=== PATIENT | male | born 1990 | race Caucasian/White ===

== ENCOUNTER 2017-07-17 17:56 | Inpatient (IN) | payer OTHER ==
[2017-07-17] MEDS ORDERED: Ondansetron 4 MG/2 ML SDV IVPUSH ONE (18:27)
[2017-07-17] MEDS ORDERED: Sodium Chloride 0.9% 1,000 ML IV ONE (18:27)
--- NOTE | 2017-07-17 18:38 | EDM.PDOC ---
Addendum entered and electronically signed by Panfilo Rangel MD 07/17/17 22 :13: ECG revealed sinus rhythm at 67/m. There is an RSR prime wave in V1 which is a normal variant. Consider left atrial hypertrophy pattern. QT interval is mildly prolonged borderline ECG. Original Note: <Panfilo Rangel - Last Filed: 07/17/17 22:03> ED HPI GENERAL MEDICAL PROBLEM - General Chief Complaint: Gastrointestinal Problem Stated Complaint: THROWING UP/CRAMPING Time Seen by Provider: 07/17/17 18:17 - Related Data Allergies Allergy/AdvReac Type Severity Reaction Status Date / Time No Known Allergies Allergy Verified 07/17/17 18:07 Home Meds: Home Meds . [No Known Home Meds] 07/17/17 [History] Course - Vital Signs Last Recorded V/S: Last Vital Signs Temp 36.3 C 07/18/17 08:37 Pulse 55 L 07/18/17 09:14 Resp 18 07/18/17 05:44 BP 130/95 H 07/18/17 08:37 Pulse Ox 100 07/18/17 09:14 Orthostatic Blood Pressure [ 128/92 Sitting] Orthostatic Blood Pressure [ 127/97 Standing] Orthostatic Blood Pressure [ 130/88 Supine] - Orders/Labs/Meds Labs: Laboratory Tests 07/17/17 07/17/17 07/17/17 Range/Units 18:40 18:40 18:40 WBC 30.24 H (4.23-9.07) K/mm3 RBC 6.16 H (4.63-6.08) M/mm3 Hgb 19.4 H (13.7-17.5) gm/L Hct 53.1 H (40.1-51.0) % MCV 86.2 (79.0-92.2) fl MCH 31.5 (25.7-32.2) pg MCHC 36.5 H (32.2-35.5) g/dl RDW Std Deviation 40.2 (35.1-43.9) fL Plt Count 311 (163-337) K/mm3 MPV 11.5 (9.4-12.3) fl Neutrophils % (Manual) 86 H (40-60) % Band Neutrophils % 0 (0-10) % Lymphocytes % (Manual) 11 L (20-40) % Atypical Lymphs % 0 % Monocytes % (Manual) 3 (2-10) % Eosinophils % (Manual) 0 L (0.8-7.0) % Basophils % (Manual) 0 L (0.2-1.2) Platelet Estimate Adequate RBC Morph Comment Normal Sodium 120 L (136-145) mEq/L Potassium 5.3 H (3.5-5.1) mEq/L Chloride 73 L (98-107) mEq/L Carbon Dioxide 17 L (21-32) mEq/L Anion Gap 35.3 H (5-15) BUN 70 H (7-18) mg/dL Creatinine 9.3 H (0.7-1.3) mg/dL Est Cr Clr Drug Dosing 9.74 mL/min Estimated GFR (MDRD) 7 (>60) mL/min BUN/Creatinine Ratio 7.5 L (14-18) Glucose 125 H (74-106) mg/dL Lactic Acid 3.1 H (0.4-2.0) mmol/L Calcium 11.2 H (8.5-10.1) mg/dL Magnesium 2.4 (1.8-2.4) mg/dl Total Bilirubin 0.7 (0.2-1.0) mg/dL AST 255 H (15-37) U/L ALT 85 H (16-63) U/L Alkaline Phosphatase 103 (46-116) U/L Total Protein 11.2 H (6.4-8.2) g/dl Albumin 5.7 H (3.4-5.0) g/dl Globulin 5.5 gm/dL Albumin/Globulin Ratio 1.0 (1-2) Lipase 156 (73-393) U/L Urine Color (Yellow) Urine Appearance (Clear) Urine pH (5.0-8.0) Ur Specific [place] (1.005-1.030) Urine Protein (Negative) Urine Glucose (UA) (Negative) Urine Ketones (Negative) Urine Occult Blood (Negative) Urine Nitrite (Negative) Urine Bilirubin (Negative) Urine Urobilinogen (0.2-1.0) Ur Leukocyte Esterase (Negative) Urine RBC (0-5) /hpf Urine WBC (0-5) /hpf Ur Epithelial Cells (0-5) /hpf Amorphous Sediment (NOT SEEN) /hpf Urine Bacteria (FEW) /hpf Coarse Granular Casts (0-5) /hpf Urine Mucus (FEW) /hpf Urine Opiates Screen (NEGATIVE) Ur Buprenorphine Scrn (NEGATIVE) Ur Oxycodone Screen (NEGATIVE) Urine Methadone Screen (NEGATIVE) Ur Propoxyphene Screen (NEGATIVE) Ur Barbiturates Screen (NEGATIVE) Ur Tricyclics Screen (NEGATIVE) Ur Phencyclidine Scrn (NEGATIVE) Ur Amphetamine Screen (NEGATIVE) U Methamphetamines Scrn (NEGATIVE) U Benzodiazepines Scrn (NEGATIVE) U Cocaine Metab Screen (NEGATIVE) U Marijuana (THC) Screen (NEGATIVE) 07/17/17 07/17/17 Range/Units 20:59 20:59 WBC (4.23-9.07) K/mm3 RBC (4.63-6.08) M/mm3 Hgb (13.7-17.5) gm/L Hct (40.1-51.0) % MCV (79.0-92.2) fl MCH (25.7-32.2) pg MCHC (32.2-35.5) g/dl RDW Std Deviation (35.1-43.9) fL Plt Count (163-337) K/mm3 MPV (9.4-12.3) fl Neutrophils % (Manual) (40-60) % Band Neutrophils % (0-10) % Lymphocytes % (Manual) (20-40) % Atypical Lymphs % % Monocytes % (Manual) (2-10) % Eosinophils % (Manual) (0.8-7.0) % Basophils % (Manual) (0.2-1.2) Platelet Estimate RBC Morph Comment Sodium (136-145) mEq/L Potassium (3.5-5.1) mEq/L Chloride (98-107) mEq/L Carbon Dioxide (21-32) mEq/L Anion Gap (5-15) BUN (7-18) mg/dL Creatinine (0.7-1.3) mg/dL Est Cr Clr Drug Dosing mL/min Estimated GFR (MDRD) (>60) mL/min BUN/Creatinine Ratio (14-18) Glucose (74-106) mg/dL Lactic Acid (0.4-2.0) mmol/L Calcium (8.5-10.1) mg/dL Magnesium (1.8-2.4) mg/dl Total Bilirubin (0.2-1.0) mg/dL AST (15-37) U/L ALT (16-63) U/L Alkaline Phosphatase (46-116) U/L Total Protein (6.4-8.2) g/dl Albumin (3.4-5.0) g/dl Globulin gm/dL Albumin/Globulin Ratio (1-2) Lipase (73-393) U/L Urine Color Yellow (Yellow) Urine Appearance Cloudy H (Clear) Urine pH 6.0 (5.0-8.0) Ur Specific [place] > or = 1.030 (1.005-1.030) Urine Protein 3+ H (Negative) Urine Glucose (UA) 1+ H (Negative) Urine Ketones Trace H (Negative) Urine Occult Blood 3+ H (Negative) Urine Nitrite Negative (Negative) Urine Bilirubin 1+ H (Negative) Urine Urobilinogen 0.2 (0.2-1.0) Ur Leukocyte Esterase Negative (Negative) Urine RBC 10-20 H (0-5) /hpf Urine WBC 10-20 H (0-5) /hpf Ur Epithelial Cells 0-5 (0-5) /hpf Amorphous Sediment Moderate H (NOT SEEN) /hpf Urine Bacteria Many H (FEW) /hpf Coarse Granular Casts 0-5 (0-5) /hpf Urine Mucus Few (FEW) /hpf Urine Opiates Screen Negative (NEGATIVE) Ur Buprenorphine Scrn Negative (NEGATIVE) Ur Oxycodone Screen Negative (NEGATIVE) Urine Methadone Screen Negative (NEGATIVE) Ur Propoxyphene Screen Negative (NEGATIVE) Ur Barbiturates Screen Negative (NEGATIVE) Ur Tricyclics Screen Negative (NEGATIVE) Ur Phencyclidine Scrn Negative (NEGATIVE) Ur Amphetamine Screen Negative (NEGATIVE) U Methamphetamines Scrn Negative (NEGATIVE) U Benzodiazepines Scrn Negative (NEGATIVE) U Cocaine Metab Screen Negative (NEGATIVE) U Marijuana (THC) Screen Presumptive positive H (NEGATIVE) Meds: Medications Discontinued Medications Generic Name Dose Route Start Last Admin Trade Name Freq PRN Reason Stop Dose Admin Acetaminophen 650 mg 07/17/17 22:16 Tylenol PO Q4H PRN Pain (Mild 1-3)/fever Hydrocodone Bitart/Acetaminophen 1 tab 07/17/17 22:16 07/18/17 09:26 [place] 325-5 Mg PO 1 tab Q4H PRN Administration Pain (moderate 4-6) Albuterol/Ipratropium 3 ml 07/17/17 22:16 Duoneb 3.0-0.5 Mg/3 Ml NEB Q4H PRN Shortness Of Breath/wheezing Hydralazine HCl 20 mg 07/17/17 22:15 Apresoline IVPUSH Q4H PRN Hypertension Hydromorphone HCl 0.25 mg 07/17/17 22:16 Dilaudid IVPUSH Q2H PRN Pain (severe 7-10) Sodium Chloride 1,000 mls @ 999 mls/hr 07/17/17 18:27 07/17/17 18:41 Normal Saline IV 07/17/17 19:27 999 mls/hr ONETIME ONE Administration Dextrose/Lactated Ringer's 1,000 mls @ 999 mls/hr 07/17/17 19:30 07/17/17 19: 47 Dextrose 5%-Lactated Ringers IV 999 mls/hr ASDIRECTED NICOLETTE Administration Dextrose/Sodium Chloride 1,000 mls @ 900 mls/hr 07/17/17 21:30 07/17/17 21:39 Dextrose 5%-Normal Saline IV 900 mls/hr ASDIRECTED NICOLETTE Administration Lactated Ringer's 1,000 mls @ 499.514 mls/hr 07/17/17 22:19 07/18/17 03:01 Ringers, Lactated IV 07/18/17 02:19 499.514 mls/hr ASDIRECTED NICOLETTE Administration Promethazine HCl 12.5 mg/ 50.5 mls @ 100 mls/hr 07/17/17 22:16 Sodium Chloride IV Q6H PRN Nausea/Vomiting Sodium Chloride 1,000 mls @ 250 mls/hr 07/17/17 22:30 07/18/17 07:07 Normal Saline IV 250 mls/hr ASDIRECTED NICOLETTE Administration Lorazepam 2 mg 07/17/17 22:15 Ativan IVPUSH Q4H PRN Seizures Lorazepam 1 mg 07/17/17 22:16 Ativan IV Q6H PRN Anxiety Magnesium Sulfate 0 dose 07/17/17 22:15 Pharmacy To Dose - Magnesium Replacement .XX ASDIRECTED PRN RX TO WATCH MAG LEVELS Metoprolol Tartrate 5 mg 07/17/17 22:15 Lopressor IVPUSH Q4H PRN Tachycardia Miscellaneous Information 1 ea 07/20/17 22:45 Remove Patch TRDERM 07/20/17 22:46 ONETIME ONE Miscellaneous Information 1 ea 07/18/17 09:00 07/18/17 09:13 Remove Patch TRDERM 1 ea DAILY NICOLETTE Administration Nicotine 21 mg 07/17/17 23:30 07/18/17 09:13 Habitrol TRDERM 21 mg DAILY NICOLETTE Administration Ondansetron HCl 4 mg 07/17/17 18:27 07/17/17 18:42 Zofran IVPUSH 07/17/17 18:28 4 mg ONETIME ONE Administration Ondansetron HCl 4 mg 07/17/17 22:16 Zofran IV Q6H PRN Nausea/Vomiting Pantoprazole Sodium 40 mg 07/18/17 09:00 07/18/17 09:16 Protonix Iv IV 40 mg Q12HR NICOLETTE Administration Potassium Chloride 0 dose 07/17/17 22:15 Pharmacy To Dose - Potassium Replacement .XX ASDIRECTED PRN RX TO WATCH K LEVELS Scopolamine 1.5 mg 07/17/17 22:20 07/17/17 23:05 Transderm-Scop TRDERM 07/17/17 22:21 1.5 mg Q72H ONE Administration Temazepam 15 mg 07/17/17 22:16 07/17/17 23:47 Restoril PO 15 mg BEDTIME PRN Administration Sleep - Re-Assessments/Exams Free Text/Narrative Re-Assessment/Exam: 07/17/17 21:00: Had a chest look at his labs done earlier today and identified significant leukocytosis which appears to be a stress response in the absence of any fever or signs of infection. He has a severe metabolic acidosis with an anion gap of 35.3. He has significant hyponatremia at 120. His urine drug screen came back positive only for marijuana as he had identified its use. This question whether his cyclical vomiting or intractable nausea and vomiting is due to marijuana use. 8 he is significantly ill and will require between 4 and 6 L of IV fluids to repair his metabolic acidosis. I therefore discussed the case with Dr. Raygoza men's [employer] boys' clothing salesperson hospitalist and he is agreed to admitting the patient to the [facility] floor on telemetry. Ordered further labs and a chest x-ray. 07/17/17 22:07 chest x-ray revealed hyperinflated lung armando but they are crystal-clear. Urinalysis showed no signs of infection on the ketosis. She'll be admitted to the floor at this time. Admission orders will be placed. Departure - Departure Time of Disposition: 22:03 Disposition: Admitted As Inpatient 68 Condition: Serious Clinical Impression: Metabolic acidosis with increased anion gap and accumulation of organic acids, Hyponatremia, History of marijuana use Intractable nausea and vomiting Qualifiers: Vomiting type: cyclical vomiting Qualified Code(s): G43.A1 - Cyclical vomiting , intractable Leukocytosis Qualifiers: Leukocytosis type: unspecified Qualified Code(s): D72.829 - Elevated white blood cell count, unspecified - Discharge Information <Trevon Crespo - Last Filed: 07/19/17 07:16> ED HPI GENERAL MEDICAL PROBLEM - General Source of Information: Reports: Patient, Significant Other (Girlfriend) - History of Present Illness INITIAL COMMENTS - FREE TEXT/NARRATIVE: The patient states that he developed nausea and emesis Saturday night, 07/15/2017, and that he has been vomiting ever since. He feels dehydrated, and has developed generalized muscle cramps. He has felt hot and cold. He has been feeling lightheaded when upright for about one day. He notes decreased urine output, and he is constipated. The patient gets symptomatic relief of his nausea and emesis with hot showers, indeed, his girlfriend states that he spends up to 12 hours at a time in the shower. The patient feels that this may be contributing to his dehydration. The patient has had similar symptoms several times a month for the past 4 or 5 years. His only evaluation was an EGD about a year and a half ago, which may have demonstrated gastritis, but was otherwise negative. The patient states that no medications were recommended or prescribed at that time, and the patient does not take any [id number] medications. The patient acknowledges that he smokes marijuana daily or every other day. He states that it has been suggested to him in the past that he has cannabis hyperemesis syndrome, however, he states that when he is feeling nauseated, marijuana improves his symptoms, therefore he does not feel that it can be cannabis hyperemesis syndrome (please note that with cannabis hyperemesis syndrome, excessive smoking of marijuana causes the syndrome of recurrent nausea and vomiting, yet peculiarly enough, smoking additional marijuana at the time of symptoms often relieves the symptoms, therefore the patient's report of relief with marijuana actually supports the diagnosis of cannabis hyperemesis syndrome). The patient does not have a PCP. Generalized Pain Score (Numeric/FACES): 7 Past Medical History Gastrointestinal History: Reports: Other (See Below) (Cyclic vomiting syndrome, likely cannabis hyperemesis syndrome) - Past Surgical History GI Surgical History: Reports: EGD Social & Family History - Tobacco Use Smoking Status *Q: Current Every Day Smoker Years of Tobacco use: 3 Packs/Tins Daily: 1 - Caffeine Use Caffeine Use: Reports: Soda - Alcohol Use Alcohol Use History: Yes Alcohol Use Frequency: Binges - Recreational Drug Use Recreational Drug Use: Yes Drug Use in Last 12 Months: Yes Recreational Drug Type: Reports: Marijuana/Hashish (smaokes daily or every other day) - Living Situation & Occupation Living situation: Reports: Single, with Significant Other (Girlfriend) 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 ED EXAM, GI/ABD - Physical Exam Exam: See Below Exam Limited By: No Limitations General Appearance: Alert, WD/WN, Mild Distress (Appears exhausted), Thin Eyes: Bilateral: Normal Appearance, EOMI Ears: Normal External Exam, Hearing Grossly Normal Nose: Normal Inspection, No Blood Throat/Mouth: Normal Inspection, Normal Lips, Normal Voice, No Airway Compromise Head: Atraumatic, Normocephalic Neck: Normal Inspection, Full Range of Motion Respiratory/Chest: No Respiratory Distress, Lungs Clear, Normal Breath Sounds, No Accessory Muscle Use Cardiovascular: Normal Peripheral Pulses, Regular Rate, Rhythm, No Gallop, No JVD, No Murmur, No Rub GI/Abdominal Exam: Normal Bowel Sounds, Soft, Non-Tender, No Organomegaly, No Distention, No Abnormal Bruit, No Mass (Male) Exam: Deferred Rectal (Males) Exam: Deferred Back Exam: Normal Inspection, Full Range of Motion, NT Extremities: Normal Inspection, Normal Range of Motion, No Pedal Edema, Normal Capillary Refill Neurological: Alert, Oriented, Normal Cognition, No Motor/Sensory Deficits Psychiatric: Normal Affect Skin Exam: Warm, Dry, Intact, Normal Color, No Rash Course - Orders/Labs/Meds Labs: Laboratory Tests 07/17/17 07/17/17 07/17/17 Range/Units 18:40 18:40 18:40 WBC 30.24 H (4.23-9.07) K/mm3 RBC 6.16 H (4.63-6.08) M/mm3 Hgb 19.4 H (13.7-17.5) gm/L Hct 53.1 H (40.1-51.0) % MCV 86.2 (79.0-92.2) fl MCH 31.5 (25.7-32.2) pg MCHC 36.5 H (32.2-35.5) g/dl RDW Std Deviation 40.2 (35.1-43.9) fL Plt Count 311 (163-337) K/mm3 MPV 11.5 (9.4-12.3) fl Neutrophils % (Manual) 86 H (40-60) % Band Neutrophils % 0 (0-10) % Lymphocytes % (Manual) 11 L (20-40) % Atypical Lymphs % 0 % Monocytes % (Manual) 3 (2-10) % Eosinophils % (Manual) 0 L (0.8-7.0) % Basophils % (Manual) 0 L (0.2-1.2) Platelet Estimate Adequate RBC Morph Comment Normal Sodium 120 L (136-145) mEq/L Potassium 5.3 H (3.5-5.1) mEq/L Chloride 73 L (98-107) mEq/L Carbon Dioxide 17 L (21-32) mEq/L Anion Gap 35.3 H (5-15) BUN 70 H (7-18) mg/dL Creatinine 9.3 H (0.7-1.3) mg/dL Est Cr Clr Drug Dosing 9.74 mL/min Estimated GFR (MDRD) 7 (>60) mL/min BUN/Creatinine Ratio 7.5 L (14-18) Glucose 125 H (74-106) mg/dL Lactic Acid 3.1 H (0.4-2.0) mmol/L Calcium 11.2 H (8.5-10.1) mg/dL Magnesium 2.4 (1.8-2.4) mg/dl Total Bilirubin 0.7 (0.2-1.0) mg/dL AST 255 H (15-37) U/L ALT 85 H (16-63) U/L Alkaline Phosphatase 103 (46-116) U/L Total Protein 11.2 H (6.4-8.2) g/dl Albumin 5.7 H (3.4-5.0) g/dl Globulin 5.5 gm/dL Albumin/Globulin Ratio 1.0 (1-2) Lipase 156 (73-393) U/L Urine Color (Yellow) Urine Appearance (Clear) Urine pH (5.0-8.0) Ur Specific [place] (1.005-1.030) Urine Protein (Negative) Urine Glucose (UA) (Negative) Urine Ketones (Negative) Urine Occult Blood (Negative) Urine Nitrite (Negative) Urine Bilirubin (Negative) Urine Urobilinogen (0.2-1.0) Ur Leukocyte Esterase (Negative) Urine RBC (0-5) /hpf Urine WBC (0-5) /hpf Ur Epithelial Cells (0-5) /hpf Amorphous Sediment (NOT SEEN) /hpf Urine Bacteria (FEW) /hpf Coarse Granular Casts (0-5) /hpf Urine Mucus (FEW) /hpf Urine Opiates Screen (NEGATIVE) Ur Buprenorphine Scrn (NEGATIVE) Ur Oxycodone Screen (NEGATIVE) Urine Methadone Screen (NEGATIVE) Ur Propoxyphene Screen (NEGATIVE) Ur Barbiturates Screen (NEGATIVE) Ur Tricyclics Screen (NEGATIVE) Ur Phencyclidine Scrn (NEGATIVE) Ur Amphetamine Screen (NEGATIVE) U Methamphetamines Scrn (NEGATIVE) U Benzodiazepines Scrn (NEGATIVE) U Cocaine Metab Screen (NEGATIVE) U Marijuana (THC) Screen (NEGATIVE) 07/17/17 07/17/17 Range/Units 20:59 20:59 WBC (4.23-9.07) K/mm3 RBC (4.63-6.08) M/mm3 Hgb (13.7-17.5) gm/L Hct (40.1-51.0) % MCV (79.0-92.2) fl MCH (25.7-32.2) pg MCHC (32.2-35.5) g/dl RDW Std Deviation (35.1-43.9) fL Plt Count (163-337) K/mm3 MPV (9.4-12.3) fl Neutrophils % (Manual) (40-60) % Band Neutrophils % (0-10) % Lymphocytes % (Manual) (20-40) % Atypical Lymphs % % Monocytes % (Manual) (2-10) % Eosinophils % (Manual) (0.8-7.0) % Basophils % (Manual) (0.2-1.2) Platelet Estimate RBC Morph Comment Sodium (136-145) mEq/L Potassium (3.5-5.1) mEq/L Chloride (98-107) mEq/L Carbon Dioxide (21-32) mEq/L Anion Gap (5-15) BUN (7-18) mg/dL Creatinine (0.7-1.3) mg/dL Est Cr Clr Drug Dosing mL/min Estimated GFR (MDRD) (>60) mL/min BUN/Creatinine Ratio (14-18) Glucose (74-106) mg/dL Lactic Acid (0.4-2.0) mmol/L Calcium (8.5-10.1) mg/dL Magnesium (1.8-2.4) mg/dl Total Bilirubin (0.2-1.0) mg/dL AST (15-37) U/L ALT (16-63) U/L Alkaline Phosphatase (46-116) U/L Total Protein (6.4-8.2) g/dl Albumin (3.4-5.0) g/dl Globulin gm/dL Albumin/Globulin Ratio (1-2) Lipase (73-393) U/L Urine Color Yellow (Yellow) Urine Appearance Cloudy H (Clear) Urine pH 6.0 (5.0-8.0) Ur Specific [place] > or = 1.030 (1.005-1.030) Urine Protein 3+ H (Negative) Urine Glucose (UA) 1+ H (Negative) Urine Ketones Trace H (Negative) Urine Occult Blood 3+ H (Negative) Urine Nitrite Negative (Negative) Urine Bilirubin 1+ H (Negative) Urine Urobilinogen 0.2 (0.2-1.0) Ur Leukocyte Esterase Negative (Negative) Urine RBC 10-20 H (0-5) /hpf Urine WBC 10-20 H (0-5) /hpf Ur Epithelial Cells 0-5 (0-5) /hpf Amorphous Sediment Moderate H (NOT SEEN) /hpf Urine Bacteria Many H (FEW) /hpf Coarse Granular Casts 0-5 (0-5) /hpf Urine Mucus Few (FEW) /hpf Urine Opiates Screen Negative (NEGATIVE) Ur Buprenorphine Scrn Negative (NEGATIVE) Ur Oxycodone Screen Negative (NEGATIVE) Urine Methadone Screen Negative (NEGATIVE) Ur Propoxyphene Screen Negative (NEGATIVE) Ur Barbiturates Screen Negative (NEGATIVE) Ur Tricyclics Screen Negative (NEGATIVE) Ur Phencyclidine Scrn Negative (NEGATIVE) Ur Amphetamine Screen Negative (NEGATIVE) U Methamphetamines Scrn Negative (NEGATIVE) U Benzodiazepines Scrn Negative (NEGATIVE) U Cocaine Metab Screen Negative (NEGATIVE) U Marijuana (THC) Screen Presumptive positive H (NEGATIVE) - Re-Assessments/Exams Free Text/Narrative Re-Assessment/Exam: 07/17/17 18:25 While it is a clinical diagnosis, the patient meets all criterion for cannabis hyperemesis syndrome. This was explained to the patient. The only treatment is for the patient to stop smoking marijuana. For today's purposes, I have ordered blood and urine tests, along with orthostatic blood pressures. We will hydrate him with IV fluid and treat his nausea with Zofran. 07/17/17 18:47 The patient is profoundly orthostatic. 1 L NS wide open has already been ordered. We will recheck orthostatics after the liter has infused. 07/17/17 19:[address] Rangel, and care of the patient turned over to him at this time, for change of shift.
[2017-07-17] MEDS ORDERED: Dextrose 5%-Lactated Ringers 1,000 ML IV SCH (19:30)
[2017-07-17] MEDS ORDERED: Dextrose 5%-0.9% NaCl 1,000 ML IV SCH (21:30)
[2017-07-17] MEDS ORDERED: hydrALAZINE 20 MG/ML SDV IVPUSH PRN (22:15)
[2017-07-17] MEDS ORDERED: Metoprolol Tartrate 5 MG/5 ML SDV IVPUSH PRN (22:15)
[2017-07-17] MEDS ORDERED: LORazepam 2 MG/ML SDV IVPUSH PRN (22:15)
[2017-07-17] MEDS ORDERED: Acetaminophen 325 MG Tab PO PRN (22:16)
[2017-07-17] MEDS ORDERED: Ondansetron 4 MG/2 ML SDV IV PRN (22:16)
[2017-07-17] MEDS ORDERED: Promethazine 12.5 MG in Sodium Chloride 0.9% 50 ML IV PRN (22:16)
[2017-07-17] MEDS ORDERED: Temazepam 15 MG Cap PO PRN (22:16)
[2017-07-17] MEDS ORDERED: HYDROmorphone 0.5 MG/0.5 ML SYRINGE IVPUSH PRN (22:16)
[2017-07-17] MEDS ORDERED: Albuterol/Ipratropium 3.0-0.5 MG/3 ML Neb Soln NEB PRN (22:16)
[2017-07-17] MEDS ORDERED: LORazepam 2 MG/ML SDV IV PRN (22:16)
[2017-07-17] MEDS ORDERED: Scopolamine 1.5 MG Transdermal Patch TRDERM ONE (22:20)
[2017-07-17] MEDS: Lactated Ringers 1,000 ML IV SCH (22:50)
[2017-07-17] MEDS: Acetaminophen/HYDROcodone 325-5 MG Tab PO PRN (23:05)
--- NOTE | 2017-07-17 23:17 | PCM.HP ---
H&P History of Present Illness - General Date of Service: 07/17/17 Admit Problem/Dx: Admission Diagnosis/Problem Admission Diagnosis/Problem Metabolic acidosis with increased anion gap and accumulation of organic acids Source of Information: Patient, Family, Provider, RN Notes Reviewed History Limitations: Reports: No Limitations - History of Present Illness Initial Comments - Free Text/Narative: This is a 27 yo white male with no past medical hx/o who comes in with complaints of dehydration associated with intractable nausea and vomiting. He denies eating or drinking unusual diet or drinks. He carries a history of similar episode several times for the past 4-5 years. During that time, he was evaluated with EGD and subsequently diagnosed with gastritis diabetes hyperemesis syndrome. His symptoms seem to improve by taking hot showers. Patient still continues to smoke marijuana every other day. He denies any other complaints. His initial workup in emergency department shows a CBC remarkable for WBC of 30.04, RBC of 6.16, hemoglobin of 19.4, hematocrit of 53.1, MCHC of 36.5, neutrophils of 86%, and lymphocytes of 11%. His chemistry is remarkable for sodium of 120, potassium of 5.3, chloride of 73, carbon dioxide of 17, anion gap of 35.3, BUN of 70, creatinine of 9.3, glucose of 125, lactic acid of 3.1, calcium of 11.2, AST of 255, ALT of 85, total protein of 11.2, and albumin of 5.7. His UA is negative for UTI. UDS is positive for THC. Chest x-ray shows no acute abnormal findings. Patient is being admitted for intractable nausea and vomiting likely secondary to cannabis hyperemesis syndrome. He is full code Generalized Pain Score (Numeric/FACES): 7 - Related Data Allergies/Adverse Reactions: Allergies Allergy/AdvReac Type Severity Reaction Status Date / Time No Known Allergies Allergy Verified 07/17/17 18:07 Home Medications: Home Meds . [No Known Home Meds] 07/17/17 [History] Past Medical History - Past Health History Medical/Surgical History: Denies Medical/Surgical History Gastrointestinal History: Reports: Other (See Below) Genitourinary History: Reports: Renal Calculus Psychiatric History: Reports: Addiction - Past Surgical History GI Surgical History: Reports: EGD Social & Family History - Tobacco Use Smoking Status *Q: Current Every Day Smoker Years of Tobacco use: 3 Packs/Tins Daily: 1 Used Tobacco, but Quit: No Second Hand Smoke Exposure: No - Caffeine Use Caffeine Use: Reports: Soda - Recreational Drug Use Recreational Drug Use: Yes Drug Use in Last 12 Months: Yes Recreational Drug Type: Reports: Marijuana/Hashish (smaokes daily or every other day) - Living Situation & Occupation Living situation: Reports: Single, with Significant Other (Girlfriend) 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) H&P Review of Systems - Review of Systems: Review Of Systems: See Below General: Denies: Fever, Chills, Malaise, Weakness, Fatigue HEENT: Reports: No Symptoms Pulmonary: Denies: Shortness of Breath, Wheezing, Pleuritic Chest Pain Cardiovascular: Reports: Lightheadedness. Denies: Chest Pain, Palpitations, Dyspnea on Exertion, Claudication Gastrointestinal: Reports: Constipation, Nausea, Vomiting. Denies: Anorexia, Decreased Appetite Genitourinary: Reports: Other (decreased urine output) Musculoskeletal: Reports: Muscle Pain Exam - Exam Exam: See Below - Vital Signs Vital Signs: Last Vital Signs Temp 36.9 C 07/17/17 18:04 Pulse 80 07/17/17 18:04 Resp 18 07/17/17 18:04 BP 140/111 H 07/17/17 18:04 Pulse Ox 100 07/17/17 18:04 Orthostatic Blood Pressure [ 128/92 Sitting] Orthostatic Blood Pressure [ 127/97 Standing] Orthostatic Blood Pressure [ 130/88 Supine] Weight: 56.699 kg - Exam General: Alert, Oriented, Cooperative, Mild Distress HEENT: Conjunctiva Clear, EACs Clear, EOMI, Hearing Intact, Mucosa Moist & [place] , Nares Patent, Normal Nasal Septum, Posterior Pharynx Clear, Pupils Equal, Pupils Reactive Neck: Supple, Trachea Midline, +2 Carotid Pulse wo Bruit Lungs: Clear to Auscultation, Normal Respiratory Effort Cardiovascular: Regular Rate, Regular Rhythm GI/Abdominal Exam: Normal Bowel Sounds, Soft, No Organomegaly, No Distention, No Abnormal Bruit, No Mass, Tender (epigastric ). No: Guarding, Rigid, Rebound , Hepatomegaly, Splenomegaly (Male) Exam: Deferred Rectal (Males) Exam: Deferred Back Exam: Normal Inspection, Full Range of Motion Extremities: Normal Inspection, Normal Range of Motion, No Pedal Edema, Normal Capillary Refill Peripheral Pulses: 3+: Posterior Tibial (L), Posterior Tibial (R), Dorsalis Pedis (L), Dorsalis Pedis (R) Skin: Warm, Dry, Intact Neuro Extensive - Mental Status: Oriented x3, Normal Cognition, Memory Intact Neuro Extensive - Motor, Sensory, Reflexes: CN II-XII Intact, Normal Gait Psychiatric: Alert, Normal Affect, Normal Mood - Patient Data Lab Results Last 24 hrs: Laboratory Results - last 24 hr 07/17/17 07/17/17 07/17/17 Range/Units 18:40 18:40 18:40 WBC 30.24 H (4.23-9.07) K/mm3 RBC 6.16 H (4.63-6.08) M/mm3 Hgb 19.4 H (13.7-17.5) gm/L Hct 53.1 H (40.1-51.0) % MCV 86.2 (79.0-92.2) fl MCH 31.5 (25.7-32.2) pg MCHC 36.5 H (32.2-35.5) g/dl RDW Std Deviation 40.2 (35.1-43.9) fL Plt Count 311 (163-337) K/mm3 MPV 11.5 (9.4-12.3) fl Neutrophils % (Manual) 86 H (40-60) % Band Neutrophils % 0 (0-10) % Lymphocytes % (Manual) 11 L (20-40) % Atypical Lymphs % 0 % Monocytes % (Manual) 3 (2-10) % Eosinophils % (Manual) 0 L (0.8-7.0) % Basophils % (Manual) 0 L (0.2-1.2) Platelet Estimate Adequate RBC Morph Comment Normal Sodium 120 L (136-145) mEq/L Potassium 5.3 H (3.5-5.1) mEq/L Chloride 73 L (98-107) mEq/L Carbon Dioxide 17 L (21-32) mEq/L Anion Gap 35.3 H (5-15) BUN 70 H (7-18) mg/dL Creatinine 9.3 H (0.7-1.3) mg/dL Est Cr Clr Drug Dosing 9.74 mL/min Estimated GFR (MDRD) 7 (>60) mL/min BUN/Creatinine Ratio 7.5 L (14-18) Glucose 125 H (74-106) mg/dL Lactic Acid 3.1 H (0.4-2.0) mmol/L Calcium 11.2 H (8.5-10.1) mg/dL Magnesium 2.4 (1.8-2.4) mg/dl Total Bilirubin 0.7 (0.2-1.0) mg/dL AST 255 H (15-37) U/L ALT 85 H (16-63) U/L Alkaline Phosphatase 103 (46-116) U/L Total Protein 11.2 H (6.4-8.2) g/dl Albumin 5.7 H (3.4-5.0) g/dl Globulin 5.5 gm/dL Albumin/Globulin Ratio 1.0 (1-2) Lipase 156 (73-393) U/L Urine Color (Yellow) Urine Appearance (Clear) Urine pH (5.0-8.0) Ur Specific [place] (1.005-1.030) Urine Protein (Negative) Urine Glucose (UA) (Negative) Urine Ketones (Negative) Urine Occult Blood (Negative) Urine Nitrite (Negative) Urine Bilirubin (Negative) Urine Urobilinogen (0.2-1.0) Ur Leukocyte Esterase (Negative) Urine RBC (0-5) /hpf Urine WBC (0-5) /hpf Ur Epithelial Cells (0-5) /hpf Amorphous Sediment (NOT SEEN) /hpf Urine Bacteria (FEW) /hpf Coarse Granular Casts (0-5) /hpf Urine Mucus (FEW) /hpf Urine Opiates Screen (NEGATIVE) Ur Buprenorphine Scrn (NEGATIVE) Ur Oxycodone Screen (NEGATIVE) Urine Methadone Screen (NEGATIVE) Ur Propoxyphene Screen (NEGATIVE) Ur Barbiturates Screen (NEGATIVE) Ur Tricyclics Screen (NEGATIVE) Ur Phencyclidine Scrn (NEGATIVE) Ur Amphetamine Screen (NEGATIVE) U Methamphetamines Scrn (NEGATIVE) U Benzodiazepines Scrn (NEGATIVE) U Cocaine Metab Screen (NEGATIVE) U Marijuana (THC) Screen (NEGATIVE) 07/17/17 07/17/17 Range/Units 20:59 20:59 WBC (4.23-9.07) K/mm3 RBC (4.63-6.08) M/mm3 Hgb (13.7-17.5) gm/L Hct (40.1-51.0) % MCV (79.0-92.2) fl MCH (25.7-32.2) pg MCHC (32.2-35.5) g/dl RDW Std Deviation (35.1-43.9) fL Plt Count (163-337) K/mm3 MPV (9.4-12.3) fl Neutrophils % (Manual) (40-60) % Band Neutrophils % (0-10) % Lymphocytes % (Manual) (20-40) % Atypical Lymphs % % Monocytes % (Manual) (2-10) % Eosinophils % (Manual) (0.8-7.0) % Basophils % (Manual) (0.2-1.2) Platelet Estimate RBC Morph Comment Sodium (136-145) mEq/L Potassium (3.5-5.1) mEq/L Chloride (98-107) mEq/L Carbon Dioxide (21-32) mEq/L Anion Gap (5-15) BUN (7-18) mg/dL Creatinine (0.7-1.3) mg/dL Est Cr Clr Drug Dosing mL/min Estimated GFR (MDRD) (>60) mL/min BUN/Creatinine Ratio (14-18) Glucose (74-106) mg/dL Lactic Acid (0.4-2.0) mmol/L Calcium (8.5-10.1) mg/dL Magnesium (1.8-2.4) mg/dl Total Bilirubin (0.2-1.0) mg/dL AST (15-37) U/L ALT (16-63) U/L Alkaline Phosphatase (46-116) U/L Total Protein (6.4-8.2) g/dl Albumin (3.4-5.0) g/dl Globulin gm/dL Albumin/Globulin Ratio (1-2) Lipase (73-393) U/L Urine Color Yellow (Yellow) Urine Appearance Cloudy H (Clear) Urine pH 6.0 (5.0-8.0) Ur Specific [place] > or = 1.030 (1.005-1.030) Urine Protein 3+ H (Negative) Urine Glucose (UA) 1+ H (Negative) Urine Ketones Trace H (Negative) Urine Occult Blood 3+ H (Negative) Urine Nitrite Negative (Negative) Urine Bilirubin 1+ H (Negative) Urine Urobilinogen 0.2 (0.2-1.0) Ur Leukocyte Esterase Negative (Negative) Urine RBC 10-20 H (0-5) /hpf Urine WBC 10-20 H (0-5) /hpf Ur Epithelial Cells 0-5 (0-5) /hpf Amorphous Sediment Moderate H (NOT SEEN) /hpf Urine Bacteria Many H (FEW) /hpf Coarse Granular Casts 0-5 (0-5) /hpf Urine Mucus Few (FEW) /hpf Urine Opiates Screen Negative (NEGATIVE) Ur Buprenorphine Scrn Negative (NEGATIVE) Ur Oxycodone Screen Negative (NEGATIVE) Urine Methadone Screen Negative (NEGATIVE) Ur Propoxyphene Screen Negative (NEGATIVE) Ur Barbiturates Screen Negative (NEGATIVE) Ur Tricyclics Screen Negative (NEGATIVE) Ur Phencyclidine Scrn Negative (NEGATIVE) Ur Amphetamine Screen Negative (NEGATIVE) U Methamphetamines Scrn Negative (NEGATIVE) U Benzodiazepines Scrn Negative (NEGATIVE) U Cocaine Metab Screen Negative (NEGATIVE) U Marijuana (THC) Screen Presumptive positive H (NEGATIVE) Result Diagrams: 07/18/17 06:10 07/18/17 06:10 Problem List Initiated/Reviewed/Updated: Yes Orders Last 24hrs: Active Orders 24 hr Category Date Time Status Admission Status [Patient Status] [ADT] Routine ADT 07/17/17 22:08 Active EKG Documentation Completion [RC] STAT Care 07/17/17 20:59 Active Height and Weight [RC] DAILY Care 07/17/17 22:16 Active Intake and Output [RC] QSHIFT Care 07/17/17 22:16 Active Orthostatic Vital Signs [RC] ASDIRECTED Care 07/17/17 19:23 Active Orthostatic Vital Signs [RC] STAT Care 07/17/17 18:27 Active Oxygen Therapy [RC] PRN Care 07/17/17 22:16 Active RT Aerosol Therapy [RC] ASDIRECTED Care 07/17/17 22:18 Active Up With Assistance [RC] ASDIRECTED Care 07/17/17 22:16 Active Up ad Jacklyn [RC] ASDIRECTED Care 07/17/17 22:16 Active VTE/DVT Education [RC] PER UNIT ROUTINE Care 07/17/17 22:16 Active Vital Signs [RC] Q4H Care 07/17/17 22:16 Active Nothing per Oral Now Diet [DIET] Diet 05/16/18 Dinner Active Chest 1V Frontal [CR] Stat Exams 07/17/17 20:58 Taken BASIC METABOLIC PANEL,BMP [CHEM] AM Lab 07/18/17 05:11 Ordered BASIC METABOLIC PANEL,BMP [CHEM] AM Lab 07/19/17 05:11 Ordered BASIC METABOLIC PANEL,BMP [CHEM] AM Lab 07/20/17 05:11 Ordered BASIC METABOLIC PANEL,BMP [CHEM] AM Lab 07/21/17 05:11 Ordered C-REACTIVE PROTEIN [CHEM] AM Lab 07/18/17 05:11 Ordered C-REACTIVE PROTEIN [CHEM] AM Lab 07/19/17 05:11 Ordered C-REACTIVE PROTEIN [CHEM] AM Lab 07/20/17 05:11 Ordered C-REACTIVE PROTEIN [CHEM] AM Lab 07/21/17 05:11 Ordered CBC WITH AUTO DIFF [HEME] AM Lab 07/18/17 05:11 Ordered CBC WITH AUTO DIFF [HEME] AM Lab 07/19/17 05:11 Ordered CBC WITH AUTO DIFF [HEME] AM Lab 07/20/17 05:11 Ordered CBC WITH AUTO DIFF [HEME] AM Lab 07/21/17 05:11 Ordered CMP [COMPREHENSIVE METABOLIC PN,CMP] [CHEM] Urgent Lab 07/17/17 22:45 Received DRUG SCREEN, URINE [URCHEM] Stat Lab 07/17/17 20:59 Ordered MAGNESIUM [CHEM] AM Lab 07/18/17 05:11 Ordered MAGNESIUM [CHEM] AM Lab 07/19/17 05:11 Ordered MAGNESIUM [CHEM] AM Lab 07/20/17 05:11 Ordered MAGNESIUM [CHEM] AM Lab 07/21/17 05:11 Ordered MG [MAGNESIUM] [CHEM] Urgent Lab 07/17/17 22:45 Received UA W/MICROSCOPIC [URIN] Stat Lab 07/17/17 20:59 Ordered Acetaminophen [Tylenol] Med 07/17/17 22:16 Active 650 mg PO Q4H PRN Acetaminophen/HYDROcodone [[place] 325-5 MG] Med 07/17/17 22:16 Active 1 tab PO Q4H PRN Albuterol/Ipratropium [DuoNeb 3.0-0.5 MG/3 ML] Med 07/17/17 22:16 Active 3 ml NEB Q4H PRN Dextrose 5%-0.9% NaCl [Dextrose 5%-Normal Saline] 1,000 Med 07/17/17 21:30 Active ml IV ASDIRECTED Dextrose 5%-Lactated Ringers 1,000 ml Med 07/17/17 19:30 Active IV ASDIRECTED HYDROmorphone [Dilaudid] Med 07/17/17 22:16 Active 0.25 mg IVPUSH Q2H PRN LORazepam [Ativan] Med 07/17/17 22:16 Active 1 mg IV Q6H PRN LORazepam [Ativan] Med 07/17/17 22:15 Active 2 mg IVPUSH Q4H PRN Lactated Ringers [Ringers, Lactated] 1,000 ml Med 07/17/17 22:19 Active IV ASDIRECTED Magnesium Rep Pharmacy to Dose [Pharmacy to Dose - Med 07/17/17 22:15 Pending Magnesium Replacement] 1 dose .XX ASDIRECTED Metoprolol Tartrate [Lopressor] Med 07/17/17 22:15 Active 5 mg IVPUSH Q4H PRN Ondansetron [Zofran] Med 07/17/17 22:16 Active 4 mg IV Q6H PRN Pantoprazole [ProTONIX IV] Med 07/18/17 09:00 Active 40 mg IV Q12HR Potassium Rep Pharmacy to Dose [Pharmacy to Dose - Med 07/17/17 22:15 Pending Potassium Replacement] 1 dose .XX ASDIRECTED Promethazine [Phenergan] 12.5 mg Med 07/17/17 22:16 Active Sodium Chloride 0.9% [Normal Saline] 50 ml IV Q6H Sodium Chloride 0.9% [Normal Saline] 1,000 ml Med 07/17/17 22:30 Active IV ASDIRECTED Temazepam [Restoril] Med 07/17/17 22:16 Active 15 mg PO BEDTIME PRN hydrALAZINE [Apresoline] Med 07/17/17 22:15 Active 20 mg IVPUSH Q4H PRN Sequential Compression Device [OM.PC] Per Unit Routine Oth 07/17/17 22:16 Ordered Resuscitation Status Routine Resus Stat 07/17/17 22:16 Ordered Medication Orders Acetaminophen (Tylenol) 650 mg PO Q4H PRN PRN Reason: Pain (Mild 1-3)/fever Hydrocodone Bitart/Acetaminophen ([place] 325-5 Mg) 1 tab PO Q4H PRN PRN Reason: Pain (moderate 4-6) Albuterol/Ipratropium (Duoneb 3.0-0.5 Mg/3 Ml) 3 ml NEB Q4H PRN PRN Reason: Shortness Of Breath/wheezing Hydralazine HCl (Apresoline) 20 mg IVPUSH Q4H PRN PRN Reason: Hypertension Hydromorphone HCl (Dilaudid) 0.25 mg IVPUSH Q2H PRN PRN Reason: Pain (severe 7-10) Dextrose/Lactated Ringer's (Dextrose 5%-Lactated Ringers) 1,000 mls @ 999 mls/ hr IV ASDIRECTED [facility], [facility] Last Admin: 07/17/17 19:47 Dose: 999 mls/hr Dextrose/Sodium Chloride (Dextrose 5%-Normal Saline) 1,000 mls @ 900 mls/hr IV ASDIRECTED [facility], [facility] Last Admin: 07/17/17 21:39 Dose: 900 mls/hr Lactated Ringer's (Ringers, Lactated) 1,000 mls @ 499.514 mls/hr IV ASDIRECTED [facility], [facility] Stop: 07/18/17 02:19 Last Admin: 07/17/17 22:50 Dose: 499.514 mls/hr Promethazine HCl 12.5 mg/ (Sodium Chloride) 50.5 mls @ 100 mls/hr IV Q6H PRN PRN Reason: Nausea/Vomiting Sodium Chloride (Normal Saline) 1,000 mls @ 250 mls/hr IV ASDIRECTED [facility], [facility] Lorazepam (Ativan) 2 mg IVPUSH Q4H PRN PRN Reason: Seizures Lorazepam (Ativan) 1 mg IV Q6H PRN PRN Reason: Anxiety Magnesium Sulfate (Pharmacy To Dose - Magnesium Replacement) 1 dose .XX ASDIRECTED [facility], [facility] Metoprolol Tartrate (Lopressor) 5 mg IVPUSH Q4H PRN PRN Reason: Tachycardia Ondansetron HCl (Zofran) 4 mg IV Q6H PRN PRN Reason: Nausea/Vomiting Pantoprazole Sodium (Protonix Iv) 40 mg IV Q12HR [facility] Potassium Chloride (Pharmacy To Dose - Potassium Replacement) 1 dose .XX ASDIRECTED [facility], [facility] Temazepam (Restoril) 15 mg PO BEDTIME PRN PRN Reason: Sleep Assessment/Plan Comment:: Assessment/Plan: Acute: Intractable Nausea/Vomiting - 2/2 Cannabis Hyperemesis Syndrome - Supportive Care and IVF - PRN Anti-emesis - Scopolamine patch x1 Leukocytosis and Erythrocytosis - Likely 2/2 Hemo-concentration - WBC 30.24; Hgb 19.4 - No clear source of infection - Likely to improve after volume expansion Electrolytes Abnormality - Na 120; K 5.3; CO2 17; Ca 11.2 - 2/2 GI Loss and MEKHI - Replete and monitor Acute Renal Failure - 2/2 Intravascular Volume Depletion - Cr 9.3 and BUN 70; UA spec gravity 1.030 - So far total 3L NS; will add 2L LR then start 1L NS at 250 for maintenance AG-MA - 2/2 combined GI Loss and MEKHI - IV Hydration - Monitor Substance Abuse - UDS pos THC; uses THC every other day - Counseled on Substance Abuse Nicotine Dependence - Counseled on Smoking cessation - Nicotine Patch 21 mg daily Plan: Admit to the floor Routine AM Labs Resume Home Meds IV fluids Repeat Labs now Code status: 1
[2017-07-17] MEDS: Nicotine 21 MG/24 Hr Patch TRDERM SCH (23:47)
[2017-07-18] MEDS: Lactated Ringers 1,000 ML IV SCH (03:01)
[2017-07-18] MEDS: Sodium Chloride 0.9% 1,000 ML IV SCH ×2 (03:02→07:07)
[2017-07-18] MEDS: Acetaminophen/HYDROcodone 325-5 MG Tab PO PRN ×2 (05:41→09:26)
--- NOTE | 2017-07-18 07:22 | CR ---
Chest: Frontal view of the chest was obtained. Comparison: No previous study. Heart size and mediastinum are normal. Lungs are clear. Bony structures are grossly intact. Impression: 1. Nothing acute is seen on frontal chest x-ray. Diagnostic code #1
[2017-07-18] MEDS ORDERED: Pantoprazole 40 MG Vial IV SCH (09:00)
[2017-07-18] MEDS: Nicotine 21 MG/24 Hr Patch TRDERM SCH (09:13)
--- NOTE | 2017-07-18 11:11 | PCM.DCSUM1 ---
Discharge Summary - Hospital Course HPI Initial Comments: The patient states that he developed nausea and emesis Saturday night, 07/15/2017, and that he has been vomiting ever since. He feels dehydrated, and has developed generalized muscle cramps. He has felt hot and cold. He has been feeling lightheaded when upright for about one day. He notes decreased urine output, and he is constipated. The patient gets symptomatic relief of his nausea and emesis with hot showers, indeed, his girlfriend states that he spends up to 12 hours at a time in the shower. The patient feels that this may be contributing to his dehydration. The patient has had similar symptoms several times a month for the past 4 or 5 years. His only evaluation was an EGD about a year and a half ago, which may have demonstrated gastritis, but was otherwise negative. The patient states that no medications were recommended or prescribed at that time, and the patient does not take any [id number] medications. The patient acknowledges that he smokes marijuana daily or every other day. He states that it has been suggested to him in the past that he has cannabis hyperemesis syndrome, however, he states that when he is feeling nauseated, marijuana improves his symptoms, therefore he does not feel that it can be cannabis hyperemesis syndrome. The patient does not have a PCP. - Discharge Data Discharge Date: 07/18/17 (ADMIT 07/17/17) Discharge Disposition: Against Medical Advice 07 Condition: Good - Discharge Diagnosis/Problem(s) (1) Cannabis hyperemesis syndrome concurrent with and due to cannabis abuse SNOMED Code(s): 74595775470431356 ICD Code: F12.188 - CANNABIS ABUSE WITH OTHER CANNABIS-INDUCED DISORDER Status: Acute Priority: High Current Visit: Yes (2) History of marijuana use SNOMED Code(s): 173980319 ICD Code: Z87.898 - PERSONAL HISTORY OF OTHER SPECIFIED CONDITIONS Status: Acute Priority: High Current Visit: Yes - Patient Summary/Data Operative Procedure(s) Performed: none Complications: none Consults: none Labs Pending at D/C: none Recommended Follow-up Testing/Procedures: Follow up with PCP in 7-10 days Planned Operative Procedure(s) after DC: none Hospital Course: Assessment/Plan: Acute: Intractable Nausea/Vomiting - Cannabinoid Hyperemesis vs Gastroenteritis - Supportive Care and IVF - PRN Anti-emesis - Scopolamine patch x1 Leukocytosis and Erythrocytosis - Likely 2/2 Hemoconcetration - WBC 30.24-->19.11; Hgb 19.4-->13.8 - No clear source of infection - Likely to improve after volume expansion Electrolytes Abnormality - Na 120-->128; K 5.3-->4.5; CO2 17-->25; Ca 11.2-->8.6 - 2/2 GI Loss and MEKHI - Replete and monitor Acute Renal Failure - 2/2 Intravascular Volume Depletion - Cr 9.3-->7.1 and BUN 70-->69; UA spec gravity 1.030 - So far total 3L NS; will add 2L LR then start 1L NS at 250 for maintenance AG-MA - 2/2 combined GI Loss and MEKHI - IV Hydration - Monitor Substance Abuse - UDS pos THC - Counseled on Substance Abuse Nicotine Dependence - Counseled on Smoking cessation - Nicotine Patch 21 mg daily Plan: Admit to the floor Routine AM Labs Resume Home Meds IV fluids Repeat Labs now Code status: 1 Overall Raj is doing well after being admitted for Cannabinoid Hyperemesis. He no longer has nausea. He understands his diagnosis and states he would like to quit marijuana. We recommended he stay another day for IV fluids as he is having acute renal issues as well as electrolyte imbalances. He states he just wants to go home. We told him he would be leaving against medical advice, and he understood. Risks of leaving AMA were discussed and he understood. Patient left AMA today home. He was not discharged home on any new medications. Recommend hydration. He should follow up with his PCP in 7-10 days and return to ED if symptoms worsen. - Patient Instructions Diet: Usual Diet as Tolerated Activity: As Tolerated Driving: May Drive Today Showering/Bathing: May Shower Notify Provider of: Fever, Increased Pain, Nausea and/or Vomiting - Discharge Plan Home Medications: Home Meds . [No Known Home Meds] 07/17/17 [History] Patient Handouts: Steps to Quit Smoking Referrals: PCP,None [Primary Care Provider] - - Discharge Summary/Plan Comment DC Time >30 min.: No - General Info Date of Service: 07/18/17 Admission Dx/Problem (Free Text: Admission Diagnosis/Problem Admission Diagnosis/Problem Metabolic acidosis with increased anion gap and accumulation of organic acids Subjective Update: UNABLE TO OBTAIN ROS DUE TO PT LEAVING AMA - Patient Data Vitals - Most Recent: Last Vital Signs Temp 97.3 F 07/18/17 08:37 Pulse 55 L 07/18/17 09:14 Resp 18 07/18/17 05:44 BP 130/95 H 07/18/17 08:37 Pulse Ox 100 07/18/17 09:14 Orthostatic Blood Pressure [ 128/92 Sitting] Orthostatic Blood Pressure [ 127/97 Standing] Orthostatic Blood Pressure [ 130/88 Supine] Weight - Most Recent: 131 lb 6.4 oz I&O - Last 24 hours: Intake & Output 07/17/17 07/18/17 07/18/17 22:59 06:59 14:59 Intake Total 6000 Output Total 950 Balance 5050 Lab Results - Last 24 hrs: Laboratory Results - last 24 hr 07/17/17 07/17/17 07/17/17 Range/Units 18:40 18:40 18:40 WBC 30.24 H (4.23-9.07) K/mm3 RBC 6.16 H (4.63-6.08) M/mm3 Hgb 19.4 H (13.7-17.5) gm/L Hct 53.1 H (40.1-51.0) % MCV 86.2 (79.0-92.2) fl MCH 31.5 (25.7-32.2) pg MCHC 36.5 H (32.2-35.5) g/dl RDW Std Deviation 40.2 (35.1-43.9) fL Plt Count 311 (163-337) K/mm3 MPV 11.5 (9.4-12.3) fl Neut % (Auto) (34.0-67.9) % Lymph % (Auto) (21.8-53.1) % Nash % (Auto) (5.3-12.2) % Eos % (Auto) (0.8-7.0) Baso % (Auto) (0.1-1.2) % Neut # (Auto) (1.78-5.38) K/mm3 Lymph # (Auto) (1.32-3.57) K/mm3 Nash # (Auto) (0.30-0.82) K/mm3 Eos # (Auto) (0.04-0.54) K/mm3 Baso # (Auto) (0.01-0.08) K/mm3 Neutrophils % (Manual) 86 H (40-60) % Band Neutrophils % 0 (0-10) % Lymphocytes % (Manual) 11 L (20-40) % Atypical Lymphs % 0 % Monocytes % (Manual) 3 (2-10) % Eosinophils % (Manual) 0 L (0.8-7.0) % Basophils % (Manual) 0 L (0.2-1.2) Manual Slide Review Platelet Estimate Adequate RBC Morph Comment Normal Sodium 120 L (136-145) mEq/L Potassium 5.3 H (3.5-5.1) mEq/L Chloride 73 L (98-107) mEq/L Carbon Dioxide 17 L (21-32) mEq/L Anion Gap 35.3 H (5-15) BUN 70 H (7-18) mg/dL Creatinine 9.3 H (0.7-1.3) mg/dL Est Cr Clr Drug Dosing 9.74 mL/min Estimated GFR (MDRD) 7 (>60) mL/min BUN/Creatinine Ratio 7.5 L (14-18) Glucose 125 H (74-106) mg/dL Lactic Acid 3.1 H (0.4-2.0) mmol/L Calcium 11.2 H (8.5-10.1) mg/dL Magnesium 2.4 (1.8-2.4) mg/dl Total Bilirubin 0.7 (0.2-1.0) mg/dL AST 255 H (15-37) U/L ALT 85 H (16-63) U/L Alkaline Phosphatase 103 (46-116) U/L C-Reactive Protein (<1.0) mg/dL Total Protein 11.2 H (6.4-8.2) g/dl Albumin 5.7 H (3.4-5.0) g/dl Globulin 5.5 gm/dL Albumin/Globulin Ratio 1.0 (1-2) Lipase 156 (73-393) U/L Urine Color (Yellow) Urine Appearance (Clear) Urine pH (5.0-8.0) Ur Specific [place] (1.005-1.030) Urine Protein (Negative) Urine Glucose (UA) (Negative) Urine Ketones (Negative) Urine Occult Blood (Negative) Urine Nitrite (Negative) Urine Bilirubin (Negative) Urine Urobilinogen (0.2-1.0) Ur Leukocyte Esterase (Negative) Urine RBC (0-5) /hpf Urine WBC (0-5) /hpf Ur Epithelial Cells (0-5) /hpf Amorphous Sediment (NOT SEEN) /hpf Urine Bacteria (FEW) /hpf Coarse Granular Casts (0-5) /hpf Urine Mucus (FEW) /hpf Urine Opiates Screen (NEGATIVE) Ur Buprenorphine Scrn (NEGATIVE) Ur Oxycodone Screen (NEGATIVE) Urine Methadone Screen (NEGATIVE) Ur Propoxyphene Screen (NEGATIVE) Ur Barbiturates Screen (NEGATIVE) Ur Tricyclics Screen (NEGATIVE) Ur Phencyclidine Scrn (NEGATIVE) Ur Amphetamine Screen (NEGATIVE) U Methamphetamines Scrn (NEGATIVE) U Benzodiazepines Scrn (NEGATIVE) U Cocaine Metab Screen (NEGATIVE) U Marijuana (THC) Screen (NEGATIVE) 07/17/17 07/17/17 07/17/17 Range/Units 20:59 20:59 22:45 WBC (4.23-9.07) K/mm3 RBC (4.63-6.08) M/mm3 Hgb (13.7-17.5) gm/L Hct (40.1-51.0) % MCV (79.0-92.2) fl MCH (25.7-32.2) pg MCHC (32.2-35.5) g/dl RDW Std Deviation (35.1-43.9) fL Plt Count (163-337) K/mm3 MPV (9.4-12.3) fl Neut % (Auto) (34.0-67.9) % Lymph % (Auto) (21.8-53.1) % Nash % (Auto) (5.3-12.2) % Eos % (Auto) (0.8-7.0) Baso % (Auto) (0.1-1.2) % Neut # (Auto) (1.78-5.38) K/mm3 Lymph # (Auto) (1.32-3.57) K/mm3 Nash # (Auto) (0.30-0.82) K/mm3 Eos # (Auto) (0.04-0.54) K/mm3 Baso # (Auto) (0.01-0.08) K/mm3 Neutrophils % (Manual) (40-60) % Band Neutrophils % (0-10) % Lymphocytes % (Manual) (20-40) % Atypical Lymphs % % Monocytes % (Manual) (2-10) % Eosinophils % (Manual) (0.8-7.0) % Basophils % (Manual) (0.2-1.2) Manual Slide Review Platelet Estimate RBC Morph Comment Sodium 125 L (136-145) mEq/L Potassium 3.8 (3.5-5.1) mEq/L Chloride 86 L (98-107) mEq/L Carbon Dioxide 22 (21-32) mEq/L Anion Gap 20.8 H (5-15) BUN 72 H (7-18) mg/dL Creatinine 8.3 H (0.7-1.3) mg/dL Est Cr Clr Drug Dosing 10.91 mL/min Estimated GFR (MDRD) 8 (>60) mL/min BUN/Creatinine Ratio 8.7 L (14-18) Glucose 217 H (74-106) mg/dL Lactic Acid (0.4-2.0) mmol/L Calcium 8.2 L (8.5-10.1) mg/dL Magnesium 1.9 (1.8-2.4) mg/dl Total Bilirubin 0.5 (0.2-1.0) mg/dL AST 180 H (15-37) U/L ALT 64 H (16-63) U/L Alkaline Phosphatase 66 (46-116) U/L C-Reactive Protein (<1.0) mg/dL Total Protein 7.2 (6.4-8.2) g/dl Albumin 3.7 (3.4-5.0) g/dl Globulin 3.5 gm/dL Albumin/Globulin Ratio 1.1 (1-2) Lipase (73-393) U/L Urine Color Yellow (Yellow) Urine Appearance Cloudy H (Clear) Urine pH 6.0 (5.0-8.0) Ur Specific [place] > or = 1.030 (1.005-1.030) Urine Protein 3+ H (Negative) Urine Glucose (UA) 1+ H (Negative) Urine Ketones Trace H (Negative) Urine Occult Blood 3+ H (Negative) Urine Nitrite Negative (Negative) Urine Bilirubin 1+ H (Negative) Urine Urobilinogen 0.2 (0.2-1.0) Ur Leukocyte Esterase Negative (Negative) Urine RBC 10-20 H (0-5) /hpf Urine WBC 10-20 H (0-5) /hpf Ur Epithelial Cells 0-5 (0-5) /hpf Amorphous Sediment Moderate H (NOT SEEN) /hpf Urine Bacteria Many H (FEW) /hpf Coarse Granular Casts 0-5 (0-5) /hpf Urine Mucus Few (FEW) /hpf Urine Opiates Screen Negative (NEGATIVE) Ur Buprenorphine Scrn Negative (NEGATIVE) Ur Oxycodone Screen Negative (NEGATIVE) Urine Methadone Screen Negative (NEGATIVE) Ur Propoxyphene Screen Negative (NEGATIVE) Ur Barbiturates Screen Negative (NEGATIVE) Ur Tricyclics Screen Negative (NEGATIVE) Ur Phencyclidine Scrn Negative (NEGATIVE) Ur Amphetamine Screen Negative (NEGATIVE) U Methamphetamines Scrn Negative (NEGATIVE) U Benzodiazepines Scrn Negative (NEGATIVE) U Cocaine Metab Screen Negative (NEGATIVE) U Marijuana (THC) Screen Presumptive positive H (NEGATIVE) 07/18/17 07/18/17 07/18/17 Range/Units 06:10 06:10 06:10 WBC 19.11 H (4.23-9.07) K/mm3 RBC 4.25 L (4.63-6.08) M/mm3 Hgb 13.8 (13.7-17.5) gm/L Hct 38.7 L (40.1-51.0) % MCV 91.1 (79.0-92.2) fl MCH 32.5 H (25.7-32.2) pg MCHC 35.7 H (32.2-35.5) g/dl RDW Std Deviation 40.9 (35.1-43.9) fL Plt Count 184 (163-337) K/mm3 MPV 11.6 (9.4-12.3) fl Neut % (Auto) 82.0 H (34.0-67.9) % Lymph % (Auto) 8.0 L (21.8-53.1) % Nash % (Auto) 9.6 (5.3-12.2) % Eos % (Auto) 0 L (0.8-7.0) Baso % (Auto) 0.1 (0.1-1.2) % Neut # (Auto) 15.69 H (1.78-5.38) K/mm3 Lymph # (Auto) 1.52 (1.32-3.57) K/mm3 Nash # (Auto) 1.83 H (0.30-0.82) K/mm3 Eos # (Auto) 0.00 L (0.04-0.54) K/mm3 Baso # (Auto) 0.02 (0.01-0.08) K/mm3 Neutrophils % (Manual) (40-60) % Band Neutrophils % (0-10) % Lymphocytes % (Manual) (20-40) % Atypical Lymphs % % Monocytes % (Manual) (2-10) % Eosinophils % (Manual) (0.8-7.0) % Basophils % (Manual) (0.2-1.2) Manual Slide Review Abnormal smear Platelet Estimate RBC Morph Comment Sodium 128 L (136-145) mEq/L Potassium 4.5 (3.5-5.1) mEq/L Chloride 89 L (98-107) mEq/L Carbon Dioxide 25 (21-32) mEq/L Anion Gap 18.5 H (5-15) BUN 69 H (7-18) mg/dL Creatinine 7.1 H (0.7-1.3) mg/dL Est Cr Clr Drug Dosing 13.41 mL/min Estimated GFR (MDRD) 9 (>60) mL/min BUN/Creatinine Ratio 9.7 L (14-18) Glucose 104 (74-106) mg/dL Lactic Acid 1.5 (0.4-2.0) mmol/L Calcium 8.6 (8.5-10.1) mg/dL Magnesium 1.9 (1.8-2.4) mg/dl Total Bilirubin (0.2-1.0) mg/dL AST (15-37) U/L ALT (16-63) U/L Alkaline Phosphatase (46-116) U/L C-Reactive Protein 2.3 H* (<1.0) mg/dL Total Protein (6.4-8.2) g/dl Albumin (3.4-5.0) g/dl Globulin gm/dL Albumin/Globulin Ratio (1-2) Lipase (73-393) U/L Urine Color (Yellow) Urine Appearance (Clear) Urine pH (5.0-8.0) Ur Specific [place] (1.005-1.030) Urine Protein (Negative) Urine Glucose (UA) (Negative) Urine Ketones (Negative) Urine Occult Blood (Negative) Urine Nitrite (Negative) Urine Bilirubin (Negative) Urine Urobilinogen (0.2-1.0) Ur Leukocyte Esterase (Negative) Urine RBC (0-5) /hpf Urine WBC (0-5) /hpf Ur Epithelial Cells (0-5) /hpf Amorphous Sediment (NOT SEEN) /hpf Urine Bacteria (FEW) /hpf Coarse Granular Casts (0-5) /hpf Urine Mucus (FEW) /hpf Urine Opiates Screen (NEGATIVE) Ur Buprenorphine Scrn (NEGATIVE) Ur Oxycodone Screen (NEGATIVE) Urine Methadone Screen (NEGATIVE) Ur Propoxyphene Screen (NEGATIVE) Ur Barbiturates Screen (NEGATIVE) Ur Tricyclics Screen (NEGATIVE) Ur Phencyclidine Scrn (NEGATIVE) Ur Amphetamine Screen (NEGATIVE) U Methamphetamines Scrn (NEGATIVE) U Benzodiazepines Scrn (NEGATIVE) U Cocaine Metab Screen (NEGATIVE) U Marijuana (THC) Screen (NEGATIVE) Med Orders - Current: Current Medications Acetaminophen (Tylenol) 650 mg PO Q4H PRN PRN Reason: Pain (Mild 1-3)/fever Hydrocodone Bitart/Acetaminophen ([place] 325-5 Mg) 1 tab PO Q4H PRN PRN Reason: Pain (moderate 4-6) Last Admin: 07/18/17 09:26 Dose: 1 tab Albuterol/Ipratropium (Duoneb 3.0-0.5 Mg/3 Ml) 3 ml NEB Q4H PRN PRN Reason: Shortness Of Breath/wheezing Hydralazine HCl (Apresoline) 20 mg IVPUSH Q4H PRN PRN Reason: Hypertension Hydromorphone HCl (Dilaudid) 0.25 mg IVPUSH Q2H PRN PRN Reason: Pain (severe 7-10) Promethazine HCl 12.5 mg/ (Sodium Chloride) 50.5 mls @ 100 mls/hr IV Q6H PRN PRN Reason: Nausea/Vomiting Sodium Chloride (Normal Saline) 1,000 mls @ 250 mls/hr IV ASDIRECTED [facility] Last Admin: 07/18/17 07:07 Dose: 250 mls/hr Lorazepam (Ativan) 2 mg IVPUSH Q4H PRN PRN Reason: Seizures Lorazepam (Ativan) 1 mg IV Q6H PRN PRN Reason: Anxiety Magnesium Sulfate (Pharmacy To Dose - Magnesium Replacement) 0 dose .XX ASDIRECTED PRN PRN Reason: RX TO WATCH MAG LEVELS Metoprolol Tartrate (Lopressor) 5 mg IVPUSH Q4H PRN PRN Reason: Tachycardia Miscellaneous Information (Remove Patch) 1 ea TRDERM DAILY [facility] Last Admin: 07/18/17 09:13 Dose: 1 ea Nicotine (Habitrol) 21 mg TRDERM DAILY [facility] Last Admin: 07/18/17 09:13 Dose: 21 mg Ondansetron HCl (Zofran) 4 mg IV Q6H PRN PRN Reason: Nausea/Vomiting Pantoprazole Sodium (Protonix Iv) 40 mg IV Q12HR [facility] Last Admin: 07/18/17 09:16 Dose: 40 mg Potassium Chloride (Pharmacy To Dose - Potassium Replacement) 0 dose .XX ASDIRECTED PRN PRN Reason: RX TO WATCH K LEVELS Temazepam (Restoril) 15 mg PO BEDTIME PRN PRN Reason: Sleep Last Admin: 07/17/17 23:47 Dose: 15 mg Discontinued Medications Sodium Chloride (Normal Saline) 1,000 mls @ 999 mls/hr IV ONETIME ONE Stop: 07/17/17 19:27 Last Admin: 07/17/17 18:41 Dose: 999 mls/hr Dextrose/Lactated Ringer's (Dextrose 5%-Lactated Ringers) 1,000 mls @ 999 mls/ [facility] Last Admin: 07/17/17 19:47 Dose: 999 mls/hr Dextrose/Sodium Chloride (Dextrose 5%-Normal Saline) 1,000 mls [facility] 900 [facility] Last Admin: 07/17/17 21:39 Dose: 900 mls/hr Lactated Ringer's (Ringers, Lactated) 1,000 mls @ 499.514 mls/hr IV ASDIRECTED [facility] Stop: 07/18/17 02:19 Last Admin: 07/18/17 03:01 Dose: 499.514 mls/hr Miscellaneous Information (Remove Patch) 1 ea TRDERM ONETIME ONE Stop: 07/20/17 22:46 Ondansetron HCl (Zofran) 4 mg IVPUSH ONETIME ONE Stop: 07/17/17 18:28 Last Admin: 07/17/17 18:42 Dose: 4 mg Scopolamine (Transderm-Scop) 1.5 mg TRDERM Q72H ONE Stop: 07/17/17 22:21 Last Admin: 07/17/17 23:05 Dose: 1.5 mg - Exam Physical Findings Comments:: UNABLE TO PERFORM EXAM DUE TO PT LEAVING AMA
[2017-07-20] MEDS ORDERED: REMOVE SCOPALAMINE TRDERM ONE (22:45)
== END 2017-07-18 10:55 | disposition left against medical advice (07) | DRG 641 ==
LOC: JD.ED 17:56 → JD.MS 22:08
PROVIDERS: ADMIT Internal Medicine; ATTEND Internal Medicine
DX: E86.0 Dehydration (principal); N17.9 Acute kidney failure, unspecified; F12.188 Cannabis abuse with other cannabis-induced disorder; E87.2 Acidosis; K59.00 Constipation, unspecified; K29.70 Gastritis, unspecified, without bleeding; Z91.19 Patient's noncompliance with other medical treatment and regimen; K52.9 Noninfective gastroenteritis and colitis, unspecified; E86.9 Volume depletion, unspecified; F17.200 Nicotine dependence, unspecified, uncomplicated; E87.1 Hypo-osmolality and hyponatremia
CPT/HCPCS: 36415; 71045; 71045-26; 80048; 80053; 80306; 81001; 83605; 83690; 83735; 85007; 85025; 85027; 86140; 93005; 96361; 96374; 99285-25; A9270-GY; C9113; J2405; J7040; J7042; J7120

== ENCOUNTER 2018-04-18 20:34 | Emergency (ER) | payer OTHER ==
[2018-04-18] MEDS ORDERED: Sodium Chloride 0.9% 10 ML Syringe FLUSH PRN (20:50)
--- NOTE | 2018-04-18 21:24 | CT ---
Head CT Technique: Multiple axial sections were obtained through the brain. Intravenous contrast was not utilized. Findings: Ventricles along with basal cisterns and sulci over the convexities are within normal limits for the patient's age. No abnormal parenchymal densities are seen. No evidence of intracranial hemorrhage. No midline shift or mass effect is seen. Bone window settings were reviewed which shows the visualized sinuses to appear clear. No acute calvarial abnormality is seen. Impression: 1. No abnormality is appreciated on noncontrast head CT study. Given the patient's symptoms of seizure, MRI could be considered to further evaluate. Diagnostic code #1
--- NOTE | 2018-04-18 21:43 | EDM.PDOC ---
ED HPI GENERAL MEDICAL PROBLEM - General Chief Complaint: Neuro Symptoms/Deficits Stated Complaint: [facility] Time Seen by Provider: 04/18/18 20:44 Source of Information: Reports: Patient, EMS, Significant Other History Limitations: Reports: No Limitations - History of Present Illness INITIAL COMMENTS - FREE TEXT/NARRATIVE: The patient arrives by [facility] for a seizure. He was sitting at home smoking a cigarette with his girlfriend and he had 2 to 3 tonic/clonic generalized seizures. He had a bloody nose after. He did not hit his nose. He said a couple years ago he may have had a seizure. He got up really fast when he was laying down and passed out and was shaking. His friend witnessed this. He was never seen by a doctor. He has no medical problems. He has no fever, chills, cough, congestion, runny nose, chest pain, shortness of breath, abdominal pain, nausea or vomiting. He does drink alcohol but only a couple times per week and not to heavy. He was not drinking alcohol tonight. He has no headache and no numbness or weakness. Onset: Sudden Duration: Minutes: Location: Reports: Generalized Severity: Moderate Improves with: Reports: None Worsens with: Reports: None Associated Symptoms: Reports: No Other Symptoms - Related Data Allergies Allergy/AdvReac Type Severity Reaction Status Date / Time No Known Allergies Allergy Verified 04/18/18 20:42 Home Meds: Home Meds . [No Known Home Meds] 07/17/17 [History] Past Medical History - Past Health History Medical/Surgical History: Denies Medical/Surgical History Gastrointestinal History: Reports: Gastritis Genitourinary History: Reports: Renal Calculus, Other (See Below) Other Genitourinary History: Kidney failure secondary to dehydration Neurological History: Reports: Seizure Psychiatric History: Reports: Addiction - Past Surgical History GI Surgical History: Reports: EGD Social & Family History - Family History Family Medical History: Noncontributory - Tobacco Use Smoking Status *Q: Current Every Day Smoker Years of Tobacco use: 3 Packs/Tins Daily: 1 - Caffeine Use Caffeine Use: Reports: Soda - Alcohol Use Days Per Week of Alcohol Use: 3 Number of Drinks Per Day: 4 Total Drinks Per Week: 12 - Recreational Drug Use Recreational Drug Use: No - Living Situation & Occupation Living situation: Reports: Single, with Significant Other (Girlfriend) Occupation: Employed ([employer] at the [employer]) ED ROS GENERAL - Review of Systems Review Of Systems: See Below Constitutional: Reports: No Symptoms HEENT: Reports: Nosebleed Respiratory: Reports: No Symptoms Cardiovascular: Reports: No Symptoms Endocrine: Reports: No Symptoms GI/Abdominal: Reports: No Symptoms : Reports: No Symptoms Musculoskeletal: Reports: No Symptoms Skin: Reports: No Symptoms Neurological: Reports: Seizure. Denies: Headache - Physical Exam Exam: See Below Exam Limited By: No Limitations General Appearance: Alert, No Apparent Distress Ears: Normal External Exam Nose: Other (Dried blood from the right nostril. Abrassion to the tip of his nose and to the base of the nostrils.) Throat/Mouth: Normal Inspection Head Exam: Atraumatic, Normocephalic Neck: Normal Inspection Respiratory/Chest: No Respiratory Distress, Lungs Clear, Normal Breath Sounds Cardiovascular: Regular Rate, Rhythm, No Edema, No Murmur GI/Abdominal: Soft, Non-Tender, No Organomegaly, No Mass Neuro Exam (Abbreviated): Alert, Oriented, No Motor/Sensory Deficits Course - Vital Signs Last Recorded V/S: Last Vital Signs Temp 98.8 F 04/18/18 20:38 Pulse 110 H 04/18/18 20:38 Resp 18 04/18/18 20:38 BP 135/89 04/18/18 20:38 Pulse Ox 100 04/18/18 20:38 - Orders/Labs/Meds Orders: Active Orders 24 hr Category Date Time Status Peripheral IV Care [RC] . DIRECTED Care 04/18/18 20:50 Active DRUG SCREEN, URINE [URCHEM] Stat Lab 04/18/18 21:47 Stop Req Sodium Chloride 0.9% [Saline Flush] Med 04/18/18 20:50 Active 10 ml FLUSH ASDIRECTED PRN Peripheral IV Insertion Adult [OM.PC] Routine Oth 04/18/18 20:50 Ordered Medication Orders Sodium Chloride (Saline Flush) 10 ml FLUSH ASDIRECTED PRN PRN Reason: Keep Vein Open Last Admin: 04/18/18 20:56 Dose: 10 ml Labs: Laboratory Tests 04/18/18 04/18/18 Range/Units 20:50 20:50 WBC 6.52 (4.23-9.07) K/mm3 RBC 4.35 L (4.63-6.08) M/mm3 Hgb 14.8 (13.7-17.5) gm/L Hct 45.2 (40.1-51.0) % MCV 103.9 H (79.0-92.2) fl MCH 34.0 H (25.7-32.2) pg MCHC 32.7 (32.2-35.5) g/dl RDW Std Deviation 47.5 H (35.1-43.9) fL Plt Count 184 (163-337) K/mm3 MPV 11.7 (9.4-12.3) fl Neut % (Auto) 48.6 (34.0-67.9) % Lymph % (Auto) 32.5 (21.8-53.1) % Winkler % (Auto) 9.4 (5.3-12.2) % Eos % (Auto) 8.1 H (0.8-7.0) Baso % (Auto) 1.2 (0.1-1.2) % Neut # (Auto) 3.17 (1.78-5.38) K/mm3 Lymph # (Auto) 2.12 (1.32-3.57) K/mm3 Winkler # (Auto) 0.61 (0.30-0.82) K/mm3 Eos # (Auto) 0.53 (0.04-0.54) K/mm3 Baso # (Auto) 0.08 (0.01-0.08) K/mm3 Sodium 141 (136-145) mEq/L Potassium 3.4 L (3.5-5.1) mEq/L Chloride 101 (98-107) mEq/L Carbon Dioxide 30 (21-32) mEq/L Anion Gap 13.4 (5-15) BUN 10 (7-18) mg/dL Creatinine 1.1 (0.7-1.3) mg/dL Est Cr Clr Drug Dosing 85.62 mL/min Estimated GFR (MDRD) > 60 (>60) mL/min BUN/Creatinine Ratio 9.1 L (14-18) Glucose 111 H (74-106) mg/dL Calcium 9.4 (8.5-10.1) mg/dL Magnesium 1.9 (1.8-2.4) mg/dl Total Bilirubin 0.6 (0.2-1.0) mg/dL AST 59 H (15-37) U/L ALT 58 (16-63) U/L Alkaline Phosphatase 78 (46-116) U/L Total Protein 7.8 (6.4-8.2) g/dl Albumin 4.0 (3.4-5.0) g/dl Globulin 3.8 gm/dL Albumin/Globulin Ratio 1.1 (1-2) Ethyl Alcohol 0.00 (0.00) gm% Meds: Medications Generic Name Dose Route Start Last Admin Trade Name Freq PRN Reason Stop Dose Admin Sodium Chloride 10 ml 04/18/18 20:50 04/18/18 20:56 Saline Flush FLUSH 10 ml ASDIRECTED PRN Administration Keep Vein Open - Re-Assessments/Exams Free Text/Narrative Re-Assessment/Exam: 04/18/18 21:43 I ordered an IV saline lock, CT of his head and labs. 04/18/18 21:[address] of his head shows no abnormality is appreciated on noncontrast head CT study. His CBC looks good. His K was a little low at 3.4. His blood glucose is elevated slightly at 111. His AST was slightly elevated at 59. His ETOH was 0. 04/18/18 21:50 He feels better now. 04/18/18 21:51 I will schedule an MRI and EEG as an out patient. I will have him follow up with one of our providers and I will have him call for an appointment for a neurologist. Departure - Departure Time of Disposition: 21:55 Disposition: Home, Self-Care 01 Condition: Good Clinical Impression: Epistaxis Abrasion of nose Qualifiers: Encounter type: initial encounter Qualified Code(s): S00.31XA - Abrasion of nose, initial encounter - Discharge Information *PRESCRIPTION DRUG MONITORING PROGRAM REVIEWED*: Not Applicable *COPY OF PRESCRIPTION DRUG MONITORING REPORT IN PATIENT ABRAM: Not Applicable Referrals: Tia Cook MD [Ordering Only Provider] - 1 Week Elena Muñoz PA-C [Physician Salon Manager] - 1 Week Forms: ED Department Discharge Additional Instructions: Drink plenty of water daily. Get a good amount of sleep nightly. Avoid alcohol. Try to avoid bright flashing lights. All these things can cause a seizure. Do not drive until you are cleared by a neurologist. Do not take a bath or swim. If you have a seizure, you may drown. Follow up with Umm Muñoz a provider in our clinic next week. I have put an order in for an EEG and MRI of your brain. Someone from the hospital will call you to make an appointment. Please return if you are worse. - My Orders Last 24 Hours: My Active Orders 04/18/18 20:50 Peripheral IV Care [RC] . DIRECTED Sodium Chloride 0.9% [Saline Flush] 10 ml FLUSH ASDIRECTED PRN Peripheral IV Insertion Adult [OM.PC] Routine 04/18/18 21:47 DRUG SCREEN, URINE [URCHEM] Stat - Assessment/Plan Last 24 Hours: My Active Orders 04/18/18 20:50 Peripheral IV Care [RC] . DIRECTED Sodium Chloride 0.9% [Saline Flush] 10 ml FLUSH ASDIRECTED PRN Peripheral IV Insertion Adult [OM.PC] Routine 04/18/18 21:47 DRUG SCREEN, URINE [URCHEM] Stat
== END 2018-04-18 22:14 | disposition home or self-care (01) ==
LOC: JD.ED 20:34
DX: R56.9 Unspecified convulsions (principal); R04.0 Epistaxis; S00.31XA Abrasion of nose, initial encounter; F17.210 Nicotine dependence, cigarettes, uncomplicated; X58.XXXA Exposure to other specified factors, initial encounter
CPT/HCPCS: 36415; 70450; 80053; 80306; 83735; 85025; 99285; G0480; 99284

== ENCOUNTER 2018-12-25 20:12 | Emergency (ER) | payer SELFPAY ==
--- NOTE | 2018-12-25 21:14 | EDM.PDOC ---
ED HPI GENERAL MEDICAL PROBLEM - General Chief Complaint: Neurological Problem Stated Complaint: POSS SEIZURE Time Seen by Provider: 12/25/18 21:14 - History of Present Illness INITIAL COMMENTS - FREE TEXT/NARRATIVE: 28-year-old male presents emergency room with what he thinks is having seizures. The patient had a single episode to 3 months ago like today's episodes today he had 2 episodes. Today's episodes were couple hours apart and they were described to the patient by his significant other as the patient starting to shake this lasted 2-3 minutes and after this he was arousable. Did not sound like there was a postictal phase he had no loss of bowel or bladder control. He has no history of heart problems or heart arrhythmias no family history of heart problems. Patient had no injuries during these episodes did not bite his tongue. - Related Data Allergies Allergy/AdvReac Type Severity Reaction Status Date / Time No Known Allergies Allergy Verified 12/25/18 20:21 Home Meds: Home Meds . [No Known Home Meds] 07/17/17 [History] Past Medical History - Past Health History Medical/Surgical History: Denies Medical/Surgical History Gastrointestinal History: Reports: Gastritis Genitourinary History: Reports: Renal Calculus, Other (See Below) Other Genitourinary History: Kidney failure secondary to dehydration Neurological History: Reports: Seizure Psychiatric History: Reports: Addiction - Past Surgical History GI Surgical History: Reports: EGD Social & Family History - Family History Family Medical History: Noncontributory - Tobacco Use Smoking Status *Q: Current Every Day Smoker Years of Tobacco use: 3 Packs/Tins Daily: 0.5 - Caffeine Use Caffeine Use: Reports: Soda - Alcohol Use Days Per Week of Alcohol Use: 1 Number of Drinks Per Day: 10 Total Drinks Per Week: 10 - Recreational Drug Use Recreational Drug Use: No - Living Situation & Occupation Living situation: Reports: Single, with Significant Other (Girlfriend) 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[employer]) ED ROS GENERAL - Review of Systems Review Of Systems: See Below Constitutional: Reports: No Symptoms HEENT: Reports: No Symptoms Respiratory: Reports: No Symptoms Cardiovascular: Reports: No Symptoms, Palpitations GI/Abdominal: Reports: No Symptoms : Reports: No Symptoms ED EXAM, NEURO - Physical Exam Exam: See Below Exam Limited By: No Limitations General Appearance: Alert Eye Exam: Bilateral Eye: Normal Inspection, PERRL Ears: Normal External Exam, Normal Canal, Hearing Grossly Normal, Other (He has some dried blood in the left canal) Nose: Normal Inspection, Normal Mucosa, No Blood Throat/Mouth: Normal Inspection, Normal Lips, Normal Teeth, Normal Oropharynx, Normal Voice, No Airway Compromise, Other (No tongue biting) Head Exam: Atraumatic, Normocephalic Neck: Normal Inspection, Supple, Non-Tender, Full Range of Motion. No: Lymphadenopathy (L), Lymphadenopathy (R) Respiratory/Chest: No Respiratory Distress, Lungs Clear, Normal Breath Sounds, Chest Non-Tender Cardiovascular: Regular Rate, Rhythm, No Edema, No Murmur GI/Abdominal: Normal Bowel Sounds, Soft, Non-Tender Neurological: Alert, Normal Mood/Affect, Normal Dorsiflexion, CN II-XII Intact, Normal Plantar Flexion, Normal Reflexes, No Motor/Sensory Deficits, Oriented x 3 Back Exam: Normal Inspection Extremities: Normal Inspection, Normal Range of Motion, Non-Tender, No Pedal Edema Psychiatric: Normal Affect, Normal Mood Skin Exam: Warm, Dry, Intact EKG INTERPRETATION EKG Date: 12/25/18 Rhythm: NSR Drewsey: Normal P-Wave: Present QRS: Other (Sleep normal possible left atrial enlargement) ST-T: Normal QT: Normal Comparison: NA - No Prior EKG Course - Vital Signs Text/Narrative:: Is unrevealing he's got a minimal hyponatremia he's had macrocytic process developing on his RBCs it doesn't sound like he drinks excessively. Head CT is unremarkable. I discussed the findings with the patient and have recommended that he follow-up with one of the local physicians here and get it EEG set up. He is not to drive or operate hazardous equipment until this is sorted out. Last Recorded V/S: Last Vital Signs Temp 36.2 C 12/25/18 20:21 Pulse 98 12/25/18 20:21 Resp 18 12/25/18 20:21 BP 159/110 H 12/25/18 20:21 Pulse Ox 96 12/25/18 20:21 - Orders/Labs/Meds Orders: Active Orders 24 hr Category Date Time Status EKG Documentation Completion [RC] STAT Care 12/25/18 21:38 Active Head wo Cont [CT] Stat Exams 12/25/18 21:37 Taken Labs: Laboratory Tests 12/25/18 12/25/18 12/25/18 Range/Units 21:50 21:50 21:55 WBC 12.15 H (4.23-9.07) K/mm3 RBC 3.88 L (4.63-6.08) M/mm3 Hgb 13.1 L D (13.7-17.5) gm/dl Hct 39.0 L (40.1-51.0) % MCV 100.5 H D (79.0-92.2) fl MCH 33.8 H (25.7-32.2) pg MCHC 33.6 (32.2-35.5) g/dl RDW Std Deviation 48.9 H (35.1-43.9) fL Plt Count 227 (163-337) K/mm3 MPV 10.8 (9.4-12.3) fl Neutrophils % (Manual) 82 H (40-60) % Band Neutrophils % 4 (0-10) % Lymphocytes % (Manual) 7 L (20-40) % Atypical Lymphs % 0 % Monocytes % (Manual) 6 (2-10) % Eosinophils % (Manual) 0 L (0.8-7.0) % Basophils % (Manual) 0 L (0.2-1.2) Myelocytes % 1 Platelet Estimate Adequate Anisocytosis 1+ slight Macrocytosis 1+ slight Sodium 133 L (136-145) mEq/L Potassium 4.1 (3.5-5.1) mEq/L Chloride 96 L (98-107) mEq/L Carbon Dioxide 28 (21-32) mEq/L Anion Gap 13.1 (5-15) BUN 14 (7-18) mg/dL Creatinine 0.8 (0.7-1.3) mg/dL Est Cr Clr Drug Dosing 121.19 mL/min Estimated GFR (MDRD) > 60 (>60) mL/min BUN/Creatinine Ratio 17.5 (14-18) Glucose 105 (74-106) mg/dL Calcium 9.4 (8.5-10.1) mg/dL Total Bilirubin 0.6 (0.2-1.0) mg/dL AST 74 H (15-37) U/L ALT 108 H (16-63) U/L Alkaline Phosphatase 94 (46-116) U/L Total Protein 7.9 (6.4-8.2) g/dl Albumin 3.8 (3.4-5.0) g/dl Globulin 4.1 gm/dL Albumin/Globulin Ratio 0.9 L (1-2) Urine Color Yellow (Yellow) Urine Appearance Slt cloudy H (Clear) Urine pH 7.5 (5.0-8.0) Ur Specific [place]restline 1.025 (1.005-1.030) Urine Protein 2+ H (Negative) Urine Glucose (UA) Negative (Negative) Urine Ketones Trace H (Negative) Urine Occult Blood 1+ H (Negative) Urine Nitrite Negative (Negative) Urine Bilirubin Negative (Negative) Urine Urobilinogen 0.2 (0.2-1.0) Ur Leukocyte Esterase Negative (Negative) Urine RBC 5-10 H (0-5) /hpf Urine WBC 0-5 (0-5) /hpf Ur Squamous Epith Cells 0-5 (0-5) /hpf Amorphous Sediment Few H (NOT SEEN) /hpf Urine Bacteria Few (FEW) /hpf Urine Mucus Few (FEW) /hpf Urine Opiates Screen (ONKLLE=308) Ur Buprenorphine Scrn (CUTOFF=10) Ur Oxycodone Screen (JDC1LZ=677) Urine Methadone Screen (FEB8RS=208) Ur Propoxyphene Screen (JKBYFK=227) Ur Barbiturates Screen (MEHGFK=292) Ur Tricyclics Screen (PZTLZG=748) Ur Phencyclidine Scrn (CUTOFF=25) Ur Amphetamine Screen (LFISQC=383) U Methamphetamines Scrn (DARLVV=140) U Benzodiazepines Scrn (MIDGAC=832) U Cocaine Metab Screen (XVHYNJ=419) U Marijuana (THC) Screen (CUTOFF=50) Ethyl Alcohol 0.00 (0.00) gm% 12/25/18 Range/Units 21:55 WBC (4.23-9.07) K/mm3 RBC (4.63-6.08) M/mm3 Hgb (13.7-17.5) gm/dl Hct (40.1-51.0) % MCV (79.0-92.2) fl MCH (25.7-32.2) pg MCHC (32.2-35.5) g/dl RDW Std Deviation (35.1-43.9) fL Plt Count (163-337) K/mm3 MPV (9.4-12.3) fl Neutrophils % (Manual) (40-60) % Band Neutrophils % (0-10) % Lymphocytes % (Manual) (20-40) % Atypical Lymphs % % Monocytes % (Manual) (2-10) % Eosinophils % (Manual) (0.8-7.0) % Basophils % (Manual) (0.2-1.2) Myelocytes % Platelet Estimate Anisocytosis Macrocytosis Sodium (136-145) mEq/L Potassium (3.5-5.1) mEq/L Chloride (98-107) mEq/L Carbon Dioxide (21-32) mEq/L Anion Gap (5-15) BUN (7-18) mg/dL Creatinine (0.7-1.3) mg/dL Est Cr Clr Drug Dosing mL/min Estimated GFR (MDRD) (>60) mL/min BUN/Creatinine Ratio (14-18) Glucose (74-106) mg/dL Calcium (8.5-10.1) mg/dL Total Bilirubin (0.2-1.0) mg/dL AST (15-37) U/L ALT (16-63) U/L Alkaline Phosphatase (46-116) U/L Total Protein (6.4-8.2) g/dl Albumin (3.4-5.0) g/dl Globulin gm/dL Albumin/Globulin Ratio (1-2) Urine Color (Yellow) Urine Appearance (Clear) Urine pH (5.0-8.0) Ur Specific [place] (1.005-1.030) Urine Protein (Negative) Urine Glucose (UA) (Negative) Urine Ketones (Negative) Urine Occult Blood (Negative) Urine Nitrite (Negative) Urine Bilirubin (Negative) Urine Urobilinogen (0.2-1.0) Ur Leukocyte Esterase (Negative) Urine RBC (0-5) /hpf Urine WBC (0-5) /hpf Ur Squamous Epith Cells (0-5) /hpf Amorphous Sediment (NOT SEEN) /hpf Urine Bacteria (FEW) /hpf Urine Mucus (FEW) /hpf Urine Opiates Screen Negative (ZMBWKE=341) Ur Buprenorphine Scrn Negative (CUTOFF=10) Ur Oxycodone Screen Negative (QGH2UA=955) Urine Methadone Screen Negative (UBP2VA=130) Ur Propoxyphene Screen Negative (PBAGZR=271) Ur Barbiturates Screen Negative (NAEJVI=720) Ur Tricyclics Screen Negative (OJGXQE=770) Ur Phencyclidine Scrn Negative (CUTOFF=25) Ur Amphetamine Screen Negative (NFDRHO=069) U Methamphetamines Scrn Negative (CUKRAL=537) U Benzodiazepines Scrn Negative (LPKQSD=567) U Cocaine Metab Screen Negative (BDHQDG=216) U Marijuana (THC) Screen Presumptive positive H (CUTOFF=50) Ethyl Alcohol (0.00) gm% Departure - Departure Time of Disposition: 23:05 Disposition: Home, Self-Care 01 Clinical Impression: Seizure-like activity - Discharge Information Referrals: PCP,None [Primary Care Provider] - Forms: ED Department Discharge Additional Instructions: Return to the emergency room with any questions problems or worsening symptoms. Follow-up in the Hospital clinic and have them arrange a EEG. [phone] get this done as soon as you can. No driving or operating has this equipment until these episodes are sorted out. And you have been told by a healthcare professional that it is okay to drive. - My Orders Last 24 Hours: My Active Orders 12/25/18 21:37 Head wo Cont [CT] Stat 12/25/18 21:38 EKG Documentation Completion [RC] STAT - Assessment/Plan Last 24 Hours: My Active Orders 12/25/18 21:37 Head wo Cont [CT] Stat 12/25/18 21:38 EKG Documentation Completion [RC] STAT
--- NOTE | 2018-12-26 08:01 | CT ---
Head CT Technique: Multiple axial sections through the brain were obtained. Intravenous contrast was not utilized. Comparison: Prior head CT study of 04/18/18. Findings: Ventricles along with basal cisterns and sulci over the convexities are within normal limits for the patient's age. No abnormal parenchymal densities are seen. No evidence of intracranial hemorrhage. No midline shift or mass effect is seen. Bone window settings were reviewed which show the visualized paranasal sinuses to show nothing acute. Mastoid sinuses are clear. Impression: 1. Nothing acute is identified on noncontrast head CT study. Diagnostic code #1 I agree with preliminary report from [facility], finalized on 12/25/18, 11:35 PM Central Time
== END 2018-12-25 23:22 | disposition home or self-care (01) ==
LOC: JD.ED 20:12
DX: R56.9 Unspecified convulsions (principal); F17.210 Nicotine dependence, cigarettes, uncomplicated
CPT/HCPCS: 36415; 70450; 70450-26; 80053; 80306; 81001; 85007; 85027; 93005; 99285-25; G0480

== ENCOUNTER 2018-12-25 23:51 | Emergency (ER) | payer SELFPAY ==
[2018-12-25] MEDS ORDERED: LORazepam 2 MG/ML SDV IVPUSH ONE (23:54)
[2018-12-25] MEDS ORDERED: LORazepam 2 MG/ML SDV ONE (23:54)
--- NOTE | 2018-12-26 00:04 | EDM.PDOC ---
ED HPI GENERAL MEDICAL PROBLEM - General Chief Complaint: Neurological Problem Stated Complaint: poss SEIZURE Time Seen by Provider: 12/25/18 23:52 - History of Present Illness INITIAL COMMENTS - FREE TEXT/NARRATIVE: 28-year-old male returns the emergency room with another apparent seizure. Patient was on his way home from this emergency department and had what seems like his third seizure this evening. 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 I was not able to witness the seizure however the patient was clearly post ictal. Please refer to his note from earlier this evening - Related Data Allergies Allergy/AdvReac Type Severity Reaction Status Date / Time No Known Allergies Allergy Verified 12/25/18 23:57 Home Meds: Home Meds . [No Known Home Meds] 07/17/17 [History] Past Medical History - Past Health History Medical/Surgical History: Denies Medical/Surgical History Gastrointestinal History: Reports: Gastritis Genitourinary History: Reports: Renal Calculus, Other (See Below) Other Genitourinary History: Kidney failure secondary to dehydration Neurological History: Reports: Seizure Psychiatric History: Reports: Addiction - Past Surgical History GI Surgical History: Reports: EGD Social & Family History - Family History Family Medical History: Noncontributory - Caffeine Use Caffeine Use: Reports: Soda - Living Situation & Occupation Living situation: Reports: Single, with Significant Other (Girlfriend) 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[employer]) ED ROS GENERAL - Review of Systems Review Of Systems: Unable To Obtain (Refer to his note from earlier this evening ) - Physical Exam Exam: See Below Exam Limited By: Other (He is postictal) General Appearance: No Apparent Distress, Other (He had been foaming at the nose and mouth) Eye Exam: Bilateral Eye: Normal Inspection, PERRL Respiratory/Chest: No Respiratory Distress, Lungs Clear, Normal Breath Sounds Cardiovascular: Regular Rate, Rhythm, No Edema, No Murmur Course - Vital Signs Last Recorded V/S: Last Vital Signs Temp 36.3 C 12/25/18 23:57 Pulse 117 H 12/25/18 23:57 Resp 26 H 12/25/18 23:57 BP 175/111 H 12/25/18 23:57 Pulse Ox 96 12/25/18 23:57 - Orders/Labs/Meds Meds: Medications Discontinued Medications Generic Name Dose Route Start Last Admin Trade Name Freq PRN Reason Stop Dose Admin Levetiracetam 1,000 mg/ Sodium 110 mls @ 400 mls/hr 12/26/18 00:14 12/26/18 00:23 Chloride IV 12/26/18 00:28 400 mls/hr ONETIME ONE Administration Lorazepam 2 mg 12/25/18 23:54 12/25/18 23:59 Ativan IVPUSH 12/25/18 23:55 2 mg ONETIME ONE Administration Lorazepam Confirm 12/25/18 23:54 12/26/18 00:00 Ativan Administered 12/25/18 23:55 Not Given Dose 2 [address] .[address] [facility] - Re-Assessments/Exams Free Text/Narrative Re-Assessment/Exam: 12/26/18 00:38 Patient was brought back into the emergency department IV started given 2 mg of Ativan. Case was discussed with Dr. Cook neurologist at [facility] who agreed that we starting Keppra and transfer the patient. Case discussed with Dr. Breen hospitalist who is kind enough to accept the patient. When I saw the patient earlier this evening it was tough to make I will was going on certainly concerning for seizure disorder however there wasn't any history of a postictal phase no loss of bowel or bladder control he hadn't bit his tongue or anything like that on exam. No one witnessed the seizure was available to provide us any information. So he was not started on antiepileptic medication at that time. Departure - Departure Time of Disposition: 00:39 Disposition: DC/Tfer to Acute Hospital 02 Clinical Impression: Seizure disorder - Discharge Information Forms: ED Department Discharge
[2018-12-26] MEDS ORDERED: levETIRAcetam 1,000 MG in Sodium Chloride 0.9% 100 ML IV ONE (00:14)
== END 2018-12-26 01:46 ==
LOC: JD.ED 23:51
DX: G40.909 Epilepsy, unspecified, not intractable, without status epilepticus (principal)
CPT/HCPCS: 96365; 96375; 99285; J1953; J2060; J7030